=== PATIENT | male | born 1970 | race Caucasian/White ===

== ENCOUNTER 2020-09-22 04:22 | Emergency (ER) | payer OTHER, SELFPAY ==
--- NOTE | ~2020-09-22 | CT_ITS ---
EXAMINATIONS: CT PULMONARY EMBOLISM STUDY AND CT ABDOMEN AND PELVIS WITHOUT CONTRAST CLINICAL INFORMATION: Right-sided pleuritic pain. Right-sided pain. COMPARISON: None. TECHNIQUE: Contiguous helical images of the chest were obtained following the administration of IV contrast. Multiplanar reconstructions were performed. MIPS were obtained and reviewed. Contiguous axial thin section helical images of the abdomen and pelvis were performed without IV contrast. The data set was reformatted in the coronal and sagittal planes and reviewed on an independent workstation. DLP: 08/13/2002 mGy-cm. CONTRAST: 65 mL of Omnipaque 350 were administered without incident. FINDINGS: The heart is of normal size. There is no pericardial effusion. The great vessels are unremarkable. Specifically, there is no pulmonary arterial filling defect. There is no CT evidence for pulmonary embolism. There are no chest wall masses. Review of lung windows demonstrates that there are neither pleural effusions nor pneumothoraces. There are no consolidations. There is mild dependent bibasilar atelectasis. There are no pulmonary parenchymal nodules. The liver is of normal size and attenuation without focal lesions nor intrahepatic biliary ductal dilation. A normal gallbladder is identified. There is no wall thickening or discernible pericholecystic fluid. The spleen, pancreas, adrenal glands are unremarkable. Both kidneys are of normal size and attenuation without hydronephrosis or nephrolithiasis. There is no abdominal free fluid. There is neither mesenteric nor retroperitoneal lymphadenopathy. There is sigmoid diverticulosis without evidence of diverticulitis; otherwise, unremarkable unopacified loops of small and large bowel are identified. A normal appendix is identified. There is no pelvic free fluid. The urinary bladder is unremarkable. There is neither pelvic nor inguinal lymphadenopathy. Bone windows: Neither sclerotic nor lytic bone lesions are identified. CT/CT angio chest PE protocol IMPRESSION: No CT evidence for pulmonary embolism. No acute abdominal or pelvic inflammatory or infectious processes. Neither hydronephrosis nor nephrolithiasis. Sigmoid diverticulosis without evidence of diverticulitis. Automated exposure control (Care Dose) Adjustment of the mA and/or kv according to patient size (this includes techniques or standardized protocols for targeted exams where dose is matched to indication / reason for exam; i.e. extremities or head).
--- NOTE | 2020-09-22 04:27 | ED.CHESTPAIN ---
HPI - Chest Pain General Chief Complaint: Abdominal Pain Stated Complaint: flank pain Time Seen by Provider: 09/22/20 04:23 Source: patient and EMS Mode of arrival: EMS Limitations: no limitations History of Present Illness HPI narrative: R sided chest pain that radiates to back with associated nausea and dyspnea - given zofran by EMS, woke up at 3am with symptoms complaint: chest pain Onset (ago): hour(s) (1.5 hours [employer]) Timing of current episode: constant Prior episodes: No Onset: awoke with symptoms Pain location: right chest Pain radiation: back Severity: similar to previous episodes Quality: sharp Relieving factors: nothing Exacerbating factors: inspiration and movement Associated symptoms: nausea and dyspnea Treatment prior to arrival: other (zofran) Related Data Home Medications Medication Instructions Recorded Confirmed atorvastatin 1 tab PO DAILY 09/22/20 09/22/20 baclofen 1 tab PO BID 09/22/20 09/22/20 divalproex 2 tab PO BEDTIME 09/22/20 09/22/20 divalproex [Depakote ER] 2 tab PO BEDTIME 09/22/20 09/22/20 escitalopram oxalate 1 tab PO DAILY 09/22/20 09/22/20 escitalopram oxalate [Lexapro] 1 tab PO DAILY 09/22/20 09/22/20 omeprazole 1 cap PO DAILY 09/22/20 09/22/20 primidone 50 mg PO QPM 09/22/20 09/22/20 primidone 100 mg PO QAM 09/22/20 09/22/20 propranolol 1 cap PO DAILY 09/22/20 09/22/20 Previous Rx's Medication Instructions Recorded ondansetron 4 mg PO Q8H PRN #20 tab 09/22/20 Allergies Allergy/AdvReac Type Severity Reaction Status Date / Time Penicillins Allergy Unknown u Verified 09/22/20 04:28 Review of Systems Review of Systems: Constitutional : No Weight loss, No Fever, No Chills ENT/Mouth : No sore throat, No Rhinorrhea Eyes: No Eye Pain, No Swelling Cardiovascular : pos Chest Pain, pos SOB, no Dyspnea on Exertion, No Orthopnea, No Edema, No Palpitations Respiratory : No Cough, No Sputum Gastrointestinal : pos Nausea, No Vomiting, No Diarrhea, No abdominal Pain, No Hematochezia, No Melena Genitourinary : No Dysuria, No Urinary Frequency Musculoskeletal : No joint pain, No Myalgias, No Joint Swelling, pos back pain Skin : No Skin Lesions, No rash Neuro : No Weakness, No Numbness, No Dizziness, No Headache Psych : No Anxiety/Panic, No Depression Heme/Lymph: No Bruising, No Lymphadenopathy Endocrine : No Polyuria, No Polydipsia All other systems reviewed and are negative COUNTS INCLUDE 234 BEDS AT THE [facility] Past Medical History Attestation statement: The following information was validated with the patient. Medical History (Updated 09/22/20 @ 06:33 by Jasmin Orr DO) Bipolar 1 disorder Cerebral palsy Chronic GERD COVID-19 Social History Social History (Updated 09/22/20 @ 04:30 by Jasmin Orr DO) Alcohol intake: unknown Smoking Status: Former smoker Use of substances other than those prescribed or required for medical reasons: Unknown Advance Directives: No Physical Exam Vital Signs: Vital Signs: Last Vital Signs Temp 98.3 F 09/22/20 04:30 Pulse 70 09/22/20 05:47 Resp 20 09/22/20 05:47 BP 144/84 H 09/22/20 05:47 Pulse Ox 95 09/22/20 05:47 Body Mass Index 31.0 Appearance: Alert. Oriented X3. No acute distress. Eyes: Pupils equal, round and reactive to light. ENT: Pharynx normal. Neck: Normal inspection. Neck supple. CVS: Normal heart rate and rhythm. Pulses normal. Respiratory: No respiratory distress. Breath sounds normal. Abdomen: Soft and nontender. Skin: Skin warm and dry. Normal skin color. Normal skin turgor. Extremities: No lower extremity edema. No calf ttp Neuro: Oriented X 3. No motor deficit. No sensory deficit. Course Course Course Narrative: states he feels better, CT scan negative, UA negative, will repeat troponin at 730 AM if negative anticipate DC home the patient states he feels much better now, very atypical pain for ACS MDM - Chest Pain MDM Narrative Medical decision making narrative: 50 yo male with CP here with abrupt onset R sided pleuritic chest pain that goes down to flank with associated nausea and dyspnea will need labs, EKG, IV morphine for pain, CT scan for PE and renal colic imaging, dispo per results and findings Lab Data Result diagrams: 09/22/20 04:41 09/22/20 04:42 Labs: Lab Results 09/22/20 09/22/20 09/22/20 Range/Units 04:41 04:41 04:41 WBC 5.0 (4.8-10.8) X10*3/uL RBC 4.39 L (4.60-5.80) X10*6/uL Hgb 12.9 L (14.0-18.0) g/dl Hct 38.8 L (42-52) % MCV 88.4 (80-98) fL MCH 29.4 (27.0-33.0) pg MCHC 33.2 (31.0-36.0) g/dl RDW 13.0 (11.0-16.0) % Plt Count 237 (160-400) X10*3/uL MPV 10.0 (9.4-12.4) fL Immature Gran % (Auto) 1.0 H (0.0-0.4) % Neut % (Auto) 49.7 (45-73) % Lymph % (Auto) 34.7 (20-40) % [place] % (Auto) 12.4 H (2-11) % Eos % (Auto) 1.6 (0-4) % Baso % (Auto) 0.6 (0-2) % Lymph # (Auto) 1.7 (1.2-4.9) X10*3/uL [place] # (Auto) 0.6 (0.1-1.2) X10*3/uL Eos # (Auto) 0.1 (0.0-0.4) X10*3/uL Baso # (Auto) 0.0 (0.0-0.2) X10*3/uL Abs Immat Gran (auto) 0.05 H (0.00-0.03) X10*3/uL Absolute Neuts (auto) 2.5 (2.0-8.3) X10*3/uL Absolute Nucleated RBC 0.000 (0.0-0.012) X10*3/uL Nucleated RBC % (auto) 0.0 (0.0-0.2) /100WBC PT 11.4 (10.8-13.0) SEC INR 1.0 (0.9-1.1) APTT 26.0 (24.1-38.0) SEC Sodium (135-145) mmol/L Potassium (3.3-5.1) mmol/L Chloride (96-108) mmol/L Carbon Dioxide (22-29) mmol/L Anion Gap (12-20) BUN (9-16) mg/dL Creatinine (0.5-1.4) mg/dL Estim Creat Clear Calc Estimated GFR Random Glucose (60-115) mg/dL Calcium (8.4-10.2) mg/dL Magnesium (1.6-2.6) mg/dL Total Bilirubin (0.0-1.0) mg/dL Direct Bilirubin (0.0-0.5) mg/dL AST (5-37) U/L ALT (0-40) U/L Alkaline Phosphatase (39-117) U/L Troponin I High Sens 6.0 (<3.5-35.0) ng/L B-Natriuretic Peptide < 10 (<100) pg/mL Total Protein (6.5-8.0) g/dL Albumin (3.5-5.0) g/dL Lipase (8-78) U/L Urine Color Urine Appearance Urine pH (5.0-8.0) Ur Specific [place] (1.005-1.025) Urine Protein (NEG-TRACE) MG/DL Urine Glucose (UA) (NEG) MG/DL Urine Ketones (NEG) MG/DL Urine Blood (NEG) Urine Nitrite (NEG) Ur Leukocyte Esterase (NEG) COVID-19 (THUY) (Negative) COVID-19 Clin Com 09/22/20 09/22/20 09/22/20 Range/Units 04:42 04:43 04:46 WBC (4.8-10.8) X10*3/uL RBC (4.60-5.80) X10*6/uL Hgb (14.0-18.0) g/dl Hct (42-52) % MCV (80-98) fL MCH (27.0-33.0) pg MCHC (31.0-36.0) g/dl RDW (11.0-16.0) % Plt Count (160-400) X10*3/uL MPV (9.4-12.4) fL Immature Gran % (Auto) (0.0-0.4) % Neut % (Auto) (45-73) % Lymph % (Auto) (20-40) % [place] % (Auto) (2-11) % Eos % (Auto) (0-4) % Baso % (Auto) (0-2) % Lymph # (Auto) (1.2-4.9) X10*3/uL [place] # (Auto) (0.1-1.2) X10*3/uL Eos # (Auto) (0.0-0.4) X10*3/uL Baso # (Auto) (0.0-0.2) X10*3/uL Abs Immat Gran (auto) (0.00-0.03) X10*3/uL Absolute Neuts (auto) (2.0-8.3) X10*3/uL Absolute Nucleated RBC (0.0-0.012) X10*3/uL Nucleated RBC % (auto) (0.0-0.2) /100WBC PT (10.8-13.0) SEC INR (0.9-1.1) APTT (24.1-38.0) SEC Sodium 140 (135-145) mmol/L Potassium 4.0 (3.3-5.1) mmol/L Chloride 104 (96-108) mmol/L Carbon Dioxide 27 (22-29) mmol/L Anion Gap 13 (12-20) BUN 22 H (9-16) mg/dL Creatinine 0.74 (0.5-1.4) mg/dL Estim Creat Clear Calc 134.5 Estimated GFR > 60 Random Glucose 137 H (60-115) mg/dL Calcium 8.9 (8.4-10.2) mg/dL Magnesium 1.9 (1.6-2.6) mg/dL Total Bilirubin 0.4 (0.0-1.0) mg/dL Direct Bilirubin 0.2 (0.0-0.5) mg/dL AST 12 (5-37) U/L ALT 16 (0-40) U/L Alkaline Phosphatase 60 (39-117) U/L Troponin I High Sens (<3.5-35.0) ng/L B-Natriuretic Peptide (<100) pg/mL Total Protein 6.9 (6.5-8.0) g/dL Albumin 4.2 (3.5-5.0) g/dL Lipase 19 (8-78) U/L Urine Color YELLOW Urine Appearance CLEAR Urine pH 6.5 (5.0-8.0) Ur Specific [place] 1.020 (1.005-1.025) Urine Protein NEG (NEG-TRACE) MG/DL Urine Glucose (UA) NEG (NEG) MG/DL Urine Ketones 5 (NEG) MG/DL Urine Blood NEG (NEG) Urine Nitrite NEG (NEG) Ur Leukocyte Esterase NEG (NEG) COVID-19 (THUY) Negative (Negative) COVID-19 Clin Com See Note ECG Data ECG #1: Attestation: I personally reviewed and interpreted this ECG as follows: ECG interpretation date: 09/22/20 ECG interpretation time: 04:48 Interpretation: Rate: 70 Rhythm: NSR [place]: normal Normal P waves. Normal ELAINE. Normal QRS complex. ST T wave : normal, no CHAVA qTC: normal prior studies: no acute ischemia The study has been interpreted contemporaneously by me. . Discharge Plan Discharge Clinical Impression: Nausea Chest pain Qualifiers: Chest pain type: chest pain on breathing Qualified Code(s): R07.1 - Chest pain on breathing Instructions: Chest Pain (ED) Additional Instructions: return to ED for any worsening symptoms or concerns Prescriptions: New ondansetron 4 mg tablet,disintegrating 4 mg PO Q8H PRN (Reason: nausea and vomiting) Qty: 20 RF: 0 No Action primidone 50 mg tablet 100 mg PO QAM RF: 0 primidone 50 mg tablet 50 mg PO QPM RF: 0 atorvastatin 10 mg tablet 1 tab PO DAILY RF: 0 baclofen 10 mg tablet 1 tab PO BID RF: 0 divalproex 500 mg tablet extended release 24 hr 2 tab PO BEDTIME RF: 0 divalproex [Depakote ER] 500 mg tablet extended release 24 hr 2 tab PO BEDTIME RF: 0 omeprazole 20 mg capsule,delayed release(DR/EC) 1 cap PO DAILY RF: 0 propranolol 120 mg capsule,extended release 24 hr 1 cap PO DAILY RF: 0 escitalopram oxalate 20 mg tablet 1 tab PO DAILY RF: 0 escitalopram oxalate [Lexapro] 20 mg tablet 1 tab PO DAILY RF: 0 Referrals: Sanam Rodríguez DO [Primary Care Provider] - 2 days (if not better)
--- NOTE | 2020-09-22 04:28 | ECG_ITS ---
Test Reason : CHEST PAIN Blood Pressure : / mmHG Vent. Rate : 070 BPM Atrial Rate : 070 BPM P-R Int : 138 ms QRS Dur : 090 ms QT Int : 420 ms P-R-T Axes : 060 015 015 degrees QTc Int : 453 ms Normal sinus rhythm Normal ECG No previous ECGs available Referred By: Jasmin Orr Electronically Signed By:KYLEE KONG MD
[2020-09-22 04:30] VITALS: BP 148/84; PULSE 73; RESP 20; TEMP 36.8; O2SAT 95; BMI 31.0
[2020-09-22 04:48] LABS: Basophils Percent Auto 0.6 % (0-2); Eosinophils Absolute Auto 0.1 X10*3/uL (0.0-0.4); Eosinophils Percent Auto 1.6 % (0-4); Hematocrit 38.8 % (42-52); Hemoglobin 12.9 g/dl (14.0-18.0); Imm Gran Abs Auto 0.05 X10*3/uL (0.00-0.03); Lymphocytes Absolute Auto 1.7 X10*3/uL (1.2-4.9); Lymphocytes Percent Auto 34.7 % (20-40); MANUAL DIFF FLAG NO; Mean Corpuscular HGB Conc 33.2 g/dl (31.0-36.0); Mean Corpuscular Hemoglobin 29.4 pg (27.0-33.0); Mean Corpuscular Volume 88.4 fL (80-98); Monocytes Absolute Auto 0.6 X10*3/uL (0.1-1.2); Monocytes Percent Auto 12.4 % (2-11); Neutrophils Absolute Auto 2.5 X10*3/uL (2.0-8.3); Neutrophils Percent Auto 49.7 % (45-73); Platelet Count 237 X10*3/uL (160-400); Red Blood Count 4.39 X10*6/uL (4.60-5.80)
[2020-09-22 04:53] LABS: Prothrombin Time 11.4 SEC (10.8-13.0)
[2020-09-22 05:07] LABS: COVID-19 Test Negative (Negative)
[2020-09-22 05:09] VITALS: RESP 20
[2020-09-22] MEDS: Morphine Sulfate 4 MG/ML CARTRIDGE IVPUSH (05:09)
[2020-09-22] MEDS: ondansetron HCL 4 MG/2 ML VIAL IVPUSH (05:10)
[2020-09-22 05:14] LABS: B Type Natriuretic Peptide < 10 pg/mL (<100)
[2020-09-22 05:18] LABS: Alanine Aminotransferase 16 U/L (0-40); Albumin Level 4.2 g/dL (3.5-5.0); Alkaline Phosphatase 60 U/L (39-117); Anion Gap 13 (12-20); Aspartate Amino Transferase 12 U/L (5-37); Bilirubin Direct 0.2 mg/dL (0.0-0.5); Bilirubin Total 0.4 mg/dL (0.0-1.0); Blood Urea Nitrogen 22 mg/dL (9-16); Calcium 8.9 mg/dL (8.4-10.2); Carbon Dioxide 27 mmol/L (22-29); Chloride 104 mmol/L (96-108); Creatinine Clr Calc Pharmacy 134.5; Estimated Glomerular Filt Rate > 60; Glucose Random 137 mg/dL (60-115); Lipase 19 U/L (8-78); Magnesium 1.9 mg/dL (1.6-2.6); Sodium 140 mmol/L (135-145); Total Protein 6.9 g/dL (6.5-8.0)
[2020-09-22 05:47] VITALS: BP 144/84; PULSE 70; RESP 20; O2SAT 95
[2020-09-22] MEDS: iohexoL 350 MG/ML 100 ML INFUS..BTL 65 ML IV (06:02)
[2020-09-22 06:28] LABS: Glucose Urine UA NEG (NEG); Leukocyte Esterase Urine NEG (NEG); Nitrite Urine NEG (NEG); PH 6.5 (5.0-8.0); Urine Blood NEG (NEG); Urine Ketones 5 MG/DL (NEG); Urine Protein NEG (NEG-TRACE)
[2020-09-22 06:29] LABS: Appearance Urine CLEAR; Color Urine YELLOW
[2020-09-22 07:34] VITALS: BP 138/84; PULSE 70; RESP 16; TEMP 36.8; O2SAT 97
[2020-09-22 08:00] VITALS: BP 138/84; PULSE 70; RESP 16; TEMP 36.8; O2SAT 97
[2020-09-22 08:53] LABS: Troponin-I High Sensitivity 5.1 ng/L (<3.5-35.0)
== END 2020-09-22 09:50 | disposition home or self-care (01) ==
PROVIDERS: Emergency Provider Emergency Medicine; PCP Internal Medicine
DX: R07.1 Chest pain on breathing (principal); R10.9 Unspecified abdominal pain; Z79.899 Other long term (current) drug therapy; R11.0 Nausea; Z20.822 Contact with and (suspected) exposure to COVID-19; Z87.891 Personal history of nicotine dependence
CPT/HCPCS: 36415; 71275; 74176; 80048; 80076; 81003; 83690; 83735; 83880; 84484; 85025; 85610; 85730; 87635; 93005; 96374; 96375; 99285; J2270; J2405; Q9967

== ENCOUNTER 2021-04-09 18:35 | Emergency (ER) | payer OTHER, SELFPAY ==
--- NOTE | 2021-04-09 | ECG_ITS ---
Test Reason : CHEST PAIN Blood Pressure : / mmHG Vent. Rate : 059 BPM Atrial Rate : 059 BPM P-R Int : 148 ms QRS Dur : 088 ms QT Int : 392 ms P-R-T Axes : 061 023 017 degrees QTc Int : 388 ms Sinus bradycardia Otherwise normal ECG When compared with ECG of 22-SEP-2020 04:44, QT has shortened Heart rate has decreased Referred By: Generic ED Physician Electronically Signed By:BRAVO COLLINS
[2021-04-09 18:45] VITALS: BP 154/83; PULSE 61; RESP 18; TEMP 36.8; O2SAT 96; BMI 33.4
--- NOTE | 2021-04-09 20:16 | ED_ITS ---
HPI - General Adult General Chief complaint: General Medical Stated complaint: Chest pain Time Seen by Provider: 04/09/21 20:16 Source: patient Mode of arrival: ambulatory Limitations: no limitations History of Present Illness HPI narrative: Patient with no known coronary artery disease disabled patient was in [facility] talking,and all of a sudden noticed pain in the right side of the chest similar to that when he was here in September 2020 feels like pain is tight in nature coming and going no diaphoresis no shortness of breath no cough at this time there is no chest pain Related Data Home Medications Medication Instructions Recorded Confirmed aspirin 81 mg tablet,delayed 1 tab PO DAILY 09/22/20 09/22/20 release atorvastatin 10 mg tablet 1 tab PO DAILY 09/22/20 09/22/20 baclofen 10 mg tablet 1 tab PO BID 09/22/20 09/22/20 divalproex 500 mg tablet,extended 2 tab PO BEDTIME 09/22/20 09/22/20 release 24 hr (Depakote ER) escitalopram oxalate 20 mg tablet 1 tab PO DAILY 09/22/20 09/22/20 (Lexapro) escitalopram oxalate 5 mg tablet 1 tab PO DAILY 09/22/20 09/22/20 omeprazole 20 mg capsule,delayed 1 cap PO DAILY 09/22/20 09/22/20 release primidone 50 mg tablet 50 mg PO QPM 09/22/20 09/22/20 primidone 50 mg tablet 100 mg PO QAM 09/22/20 09/22/20 propranolol 120 mg capsule,24 1 cap PO DAILY 09/22/20 09/22/20 hr,extended release Previous Rx's Medication Instructions Recorded ondansetron 4 mg disintegrating 4 mg PO Q8H PRN #20 tab 09/22/20 tablet atorvastatin 10 mg tablet 10 mg PO DAILY #30 tab 04/09/21 Allergies Allergy/AdvReac Type Severity Reaction Status Date / Time Penicillins Allergy Unknown u Verified 04/09/21 18:37 Review of Systems Review of Systems: Yes all other systems are reviewed and are negative PMF Past Medical History Medical History Bipolar 1 disorder Cerebral palsy Chronic GERD COVID-19 High cholesterol Social History Social History Alcohol intake: unknown Advance Directives: No Advance Directives Information Provided: No Physical Exam Vital Signs: Vital Signs: Last Vital Signs Temp 98.2 F 04/09/21 18:45 Pulse 60 04/09/21 21:33 Resp 20 04/09/21 21:33 BP 125/71 04/09/21 21:33 Pulse Ox 96 04/09/21 20:33 Body Mass Index 33.4 Appearance: Alert. Oriented X3. No acute distress. Eyes: PERRLA, No Nystagmus ENT: Pharynx normal. Oral Mucosa moist Neck: Normal inspection. Neck supple. CVS: Normal heart rate and rhythm. Pulses normal. No murmur or gallop Respiratory: No respiratory distress. Equal air entry bilateral, no wheezing/rales/rhonchi Abdomen: Soft and nontender. Bowel sounds are present, no mass palpable, no CVA tenderness Skin: Skin warm and dry. Normal skin color. Normal skin turgor. Extremities: No lower extremity edema. No calf tenderness Neuro: Oriented X 3. 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 Result diagrams: 04/09/21 20:38 04/09/21 20:38 Labs: Lab Results 04/09/21 04/09/21 04/09/21 Range/Units 20:38 20:38 20:38 WBC 7.2 (4.8-10.8) X10*3/uL RBC 4.62 (4.60-5.80) X10*6/uL Hgb 13.5 L (14.0-18.0) g/dl Hct 39.9 L (42-52) % MCV 86.4 (80-98) fL MCH 29.2 (27.0-33.0) pg MCHC 33.8 (31.0-36.0) g/dl RDW 13.4 (11.0-16.0) % Plt Count 277 (160-400) X10*3/uL MPV 9.9 (9.4-12.4) fL Immature Gran % (Auto) 0.6 H (0.0-0.4) % Neut % (Auto) 55.6 (45-73) % Lymph % (Auto) 34.0 (20-40) % [place] % (Auto) 8.0 (2-11) % Eos % (Auto) 1.4 (0-4) % Baso % (Auto) 0.4 (0-2) % Lymph # (Auto) 2.5 (1.2-4.9) X10*3/uL [place] # (Auto) 0.6 (0.1-1.2) X10*3/uL Eos # (Auto) 0.1 (0.0-0.4) X10*3/uL Baso # (Auto) 0.0 (0.0-0.2) X10*3/uL Abs Immat Gran (auto) 0.04 H (0.00-0.03) X10*3/uL Absolute Neuts (auto) 4.0 (2.0-8.3) X10*3/uL Absolute Nucleated RBC 0.000 (0.0-0.012) X10*3/uL Nucleated RBC % (auto) 0.0 (0.0-0.2) /100WBC Sodium 141 (135-145) mmol/L Potassium 4.1 (3.3-5.1) mmol/L Chloride 109 H (96-108) mmol/L Carbon Dioxide 23 (22-29) mmol/L Anion Gap 13 (12-20) BUN 16 (9-16) mg/dL Creatinine 0.69 (0.5-1.4) mg/dL Estim Creat Clear Calc 143.4 Estimated GFR > 60 Random Glucose 93 (60-115) mg/dL Calcium 9.0 (8.4-10.2) mg/dL Troponin I High Sens < 3.5 (<3.5-35.0) ng/L ECG Data Attestation: I personally reviewed and interpreted this ECG as follows: Interpretation: Normal sinus rhythm heart rate 59 sinus bradycardia normal intervals normal axis no acute ST T wave changes Scores Heart Score History: -0- slightly suspicious ECG: -0- normal Age: -1- >45 - <65 Risk factory: -0- no risk factors known Troponin: -0- < or = normal limit Score: 1 Risk: 1.7% Discharge Plan Discharge Clinical Impression: Chest pain Patient Disposition: Home, Self-Care Instructions: Chest Pain (ED) Additional Instructions: Follow-up with your PCP for further evaluation if chest pain is likely not from the heart Prescriptions: New atorvastatin 10 mg tablet 10 mg PO DAILY Qty: 30 RF: 0 No Action primidone 50 mg tablet 100 mg PO QAM RF: 0 primidone 50 mg tablet 50 mg PO QPM RF: 0 atorvastatin 10 mg tablet 1 tab PO DAILY RF: 0 baclofen 10 mg tablet 1 tab PO BID RF: 0 divalproex [Depakote ER] 500 mg tablet extended release 24 hr 2 tab PO BEDTIME RF: 0 omeprazole 20 mg capsule,delayed release(DR/EC) 1 cap PO DAILY RF: 0 propranolol 120 mg capsule,extended release 24 hr 1 cap PO DAILY RF: 0 escitalopram oxalate [Lexapro] 20 mg tablet 1 tab PO DAILY RF: 0 ondansetron 4 mg tablet,disintegrating 4 mg PO Q8H PRN (Reason: nausea and vomiting) Qty: 20 RF: 0 escitalopram oxalate 5 mg tablet 1 tab PO DAILY RF: 0 aspirin 81 mg tablet,delayed release (DR/EC) 1 tab PO DAILY RF: 0 Interventions: ED Discharge Assessment Last Done: 04/09/21 21:38 Discharge Date/Time: 04/09/21 21:38
[2021-04-09 20:33] VITALS: BP 127/80; PULSE 52; RESP 21; O2SAT 96
[2021-04-09 20:44] LABS: MANUAL DIFF FLAG NO
[2021-04-09 20:45] LABS: Basophils Percent Auto 0.4 % (0-2); Eosinophils Absolute Auto 0.1 X10*3/uL (0.0-0.4); Eosinophils Percent Auto 1.4 % (0-4); Hematocrit 39.9 % (42-52); Hemoglobin 13.5 g/dl (14.0-18.0); Imm Gran Abs Auto 0.04 X10*3/uL (0.00-0.03); Imm Gran Pct Auto 0.6 % (0.0-0.4); Lymphocytes Absolute Auto 2.5 X10*3/uL (1.2-4.9); Mean Corpuscular HGB Conc 33.8 g/dl (31.0-36.0); Mean Corpuscular Hemoglobin 29.2 pg (27.0-33.0); Mean Corpuscular Volume 86.4 fL (80-98); Mean Platelet Volume 9.9 fL (9.4-12.4); Monocytes Absolute Auto 0.6 X10*3/uL (0.1-1.2); Neutrophils Percent Auto 55.6 % (45-73); Platelet Count 277 X10*3/uL (160-400); Red Blood Count 4.62 X10*6/uL (4.60-5.80); Red Cell Distribution Width 13.4 % (11.0-16.0); White Blood Count 7.2 X10*3/uL (4.8-10.8)
[2021-04-09 21:04] LABS: Anion Gap 13 (12-20); Blood Urea Nitrogen 16 mg/dL (9-16); Carbon Dioxide 23 mmol/L (22-29); Chloride 109 mmol/L (96-108); Creatinine Clr Calc Pharmacy 143.4; Estimated Glomerular Filt Rate > 60; Glucose Random 93 mg/dL (60-115); Potassium 4.1 mmol/L (3.3-5.1); Sodium 141 mmol/L (135-145)
[2021-04-09 21:10] LABS: Troponin-I High Sensitivity < 3.5 ng/L (<3.5-35.0)
[2021-04-09 21:33] VITALS: BP 125/71; PULSE 60; RESP 20
== END 2021-04-09 21:38 | disposition home or self-care (01) ==
PROVIDERS: Emergency Provider Internal Medicine
DX: R07.9 Chest pain, unspecified (principal); Z79.899 Other long term (current) drug therapy; Z79.82 Long term (current) use of aspirin; Z20.822 Contact with and (suspected) exposure to COVID-19; Z86.16 Personal history of COVID-19
CPT/HCPCS: 36415; 80048; 84484; 85025; 93005; 99284

== ENCOUNTER 2021-04-25 18:11 | Inpatient (IN) | payer OTHER, SELFPAY ==
--- NOTE | ~2021-04-25 | MR_ITS ---
EXAMINATION: MR ABDOMEN WITHOUT CONTRAST CLINICAL INFORMATION: Gallstones. Evaluate for common bile duct stone. COMPARISON: Previous CT of the abdomen and pelvis most recent from yesterday and abdominal ultrasound from yesterday. TECHNIQUE: MR abdomen is performed without gadolinium contrast. FINDINGS: LUNG BASES: The visualized lung bases are unremarkable. LIVER, GALLBLADDER, AND BILIARY TREE: The liver is low in attenuation suggestive of fatty infiltration. The liver is normal in size and contour. No focal liver lesion is seen. The gallbladder is contracted. There are gallstones in the gallbladder. The gallbladder wall may be thickened, measuring up to 8 mm. There is no pericholecystic fluid. There is no intrahepatic or extrahepatic biliary duct dilatation. The common bile duct measures 0.6 cm. No common bile duct stone is seen. PANCREAS: Unremarkable. SPLEEN: Unremarkable. ADRENAL GLANDS: Unremarkable. KIDNEYS AND URETERS: The kidneys are normal in size and shape. No hydronephrosis. No perinephric stranding. GASTROINTESTINAL TRACT: There is diverticulosis of the colon. No bowel obstruction. No ascites or fluid collection. ABDOMINAL WALL: No significant hernia is appreciated. LYMPH NODES: No lymphadenopathy. VASCULAR: Unremarkable. OSSEOUS STRUCTURES: Marrow signal normal. MR/MR MRCP IMPRESSION: Contracted gallbladder and gallstones. The gallbladder wall may be slightly thickened. Normal caliber intrahepatic and extrahepatic bile ducts. No common bile duct stone seen. Fatty liver. Diverticulosis of the colon.
--- NOTE | ~2021-04-25 | US_ITS ---
EXAMINATION: US ABDOMEN LIMITED CLINICAL INFORMATION: Right upper quadrant pain, evaluate for obstructive process. COMPARISON: None TECHNIQUE: Real-time imaging of the right upper quadrant abdominal viscera. FINDINGS: PANCREAS: The visualized proximal portion of the pancreas is unremarkable. The distal portion is obscured secondary to overlying bowel gas. LIVER: The liver is normal in size. The liver contour is normal. There is increased liver parenchymal echogenicity, consistent with hepatic steatosis, with some sparing near the gallbladder. No focal hepatic lesion. There is no intrahepatic biliary duct dilatation seen. GALLBLADDER: Gallbladder is contracted. Gallstones are identified. There is mild wall thickening to 0.4 cm. COMMON BILE DUCT: Dilated, measuring 0.9 cm in diameter. RIGHT KIDNEY: No hydronephrosis. No renal calculi or focal parenchymal lesions. The kidney measures 12.1 cm in maximum dimension. FREE FLUID: None. US/US abdomen limited IMPRESSION: Cholelithiasis. Contracted gallbladder demonstrates mild wall thickening, which could reflect changes of cholecystitis. In addition, the common bile duct is dilated raising the possibility of choledocholithiasis, which could be further assessed with MRCP or ERCP.
--- NOTE | ~2021-04-25 | XR_ITS ---
EXAMINATION: XR CHEST CLINICAL INFORMATION: Dyspnea COMPARISON: None TECHNIQUE: Frontal view of the chest was obtained. FINDINGS: The cardiac silhouette is normal. There is mild diffuse bronchial wall thickening. Hazy bilateral opacities in the left lower lobe. There are no pleural effusions or pneumothoraces. The bones and soft tissues are unremarkable for the patient's age. XR/XR chest 1V IMPRESSION: Bronchial wall thickening and hazy opacities in the left lower lobe may be infectious and/or inflammatory in etiology.
--- NOTE | ~2021-04-25 | CT_ITS ---
EXAMINATION: CONTRAST-ENHANCED CT OF THE CHEST; CONTRAST-ENHANCED CT OF THE ABDOMEN AND PELVIS INDICATION: Dyspnea, right upper quadrant pain COMPARISON: 09/22/2020 TECHNIQUE: 85 mL Omnipaque 350 IV contrast was utilized. Multidetector helical imaging was performed through the chest, abdomen, and pelvis. Coronal and sagittal reformatted images were created at the technologist workstation. DLP: 1385 mGy-cm DOSE LOWERING TECHNIQUES: This CT examination was performed using dose optimization techniques as appropriate, variously including the following: - Automated exposure control - Adjustment of mA and/or kV according to patient size (this includes techniques or standardized protocols for targeted exams were dose is matched to indication/reason for exam; i.e. extremities or head) - Use of iterative reconstruction technique FINDINGS: Chest: Minimal subsegmental atelectasis is noted at the left base. No regions of consolidation bilaterally. A few small juxtapleural nodules bilaterally favor lymph nodes. No pneumothorax or pleural effusion. The visualized thyroid gland is unremarkable. There are subcentimeter mediastinal lymph nodes within the range of normal variation. Cardiac size is within normal limits; no pericardial effusion. The aorta is unremarkable. No axillary lymphadenopathy is present. Abdomen/Pelvis: The liver is homogeneous in attenuation without intrahepatic biliary ductal dilatation. The gallbladder appears partially contracted, with mural prominence and surrounding stranding. The spleen, pancreas, and adrenal glands are within normal limits. Bilateral nephrograms are symmetric. No hydronephrosis. No obstructing renal or ureteral calculi are present. The urinary bladder is unremarkable. The prostate and seminal vesicles are unremarkable. Colonic diverticulosis is noted. The small and large bowel are otherwise unremarkable without evidence of obstruction or pericolonic inflammatory change. The appendix is unremarkable. No free fluid or free air is identified. There are mild scattered atherosclerotic calcifications. No retroperitoneal or pelvic lymphadenopathy is seen. There is facet arthropathy of the lower lumbar spine. CT/CT abdomen pelvis w con IMPRESSION: 1. Gallbladder appears partially contracted, with mural prominence and surrounding stranding raising concern for cholecystitis in the setting of right upper quadrant pain. Correlation with ultrasound is recommended. 2. No acute intrathoracic findings. 3. Colonic diverticulosis.
[2021-04-25 18:50] VITALS: BP 138/68; PULSE 68; RESP 18; TEMP 36.6; O2SAT 95; BMI 33.4
--- NOTE | 2021-04-25 20:11 | ECG_ITS ---
Test Reason : DYSPNEA Blood Pressure : / mmHG Vent. Rate : 062 BPM Atrial Rate : 062 BPM P-R Int : 156 ms QRS Dur : 088 ms QT Int : 408 ms P-R-T Axes : 057 012 021 degrees QTc Int : 414 ms Normal sinus rhythm Normal ECG When compared with ECG of 09-APR-2021 18:40, No significant change was found Referred By: Sandrine More Electronically Signed By:BRAVO COLLINS
[2021-04-25 20:31] VITALS: PULSE 63; RESP 16; TEMP 36.8; O2SAT 96
--- NOTE | 2021-04-25 20:45 | ED.SOB ---
HPI - SOB/Dyspnea General Chief Complaint: Dyspnea <NEELIMA Fang Last Filed: 04/26/21 01:40> Stated Complaint: Trouble breathing, chest pain <NEELIMA Fang Last Filed: 04/26/21 01:40> Time Seen by Provider: 04/25/21 19:59 <NEELIMA Fang Last Filed: 04/26/21 01:40> Source: patient <NEELIMA Fang Last Filed: 04/26/21 01:40> Mode of arrival: ambulatory <NEELIMA Fang Last Filed: 04/26/21 01:40> History of Present Illness HPI Narrative: 51-year-old male with past medical history of bipolar, GERD, hyperlipidemia, cerebral palsy, presenting to the ED complaining of chest discomfort when taking deep breath x1 week. Denies these symptoms at present, reports symptomatic improvement now. Reports mild dry cough. Denies fever, chills, chest pain, SOB now, abdominal pain, LE edema, recent travel, COVID-19 exposure, history of blood clots. Takes baby ASA, no other anticoagulation Was vaccinated with Moderna <NEELIMA Fang Last Filed: 04/26/21 01:40> MD elicited complaint: shortness of breath, pain with inspiration and chest pain <NEELIMA Fang Last Filed: 04/26/21 01:40> Related Data Home Medications: Home Medications Medication Instructions Recorded Confirmed aspirin 81 mg tablet,delayed 1 tab PO DAILY 09/22/20 04/26/21 release atorvastatin 10 mg tablet 1 tab PO DAILY 09/22/20 04/26/21 baclofen 10 mg tablet 1 tab PO BID 09/22/20 04/26/21 divalproex 500 mg tablet,extended 2 tab PO BEDTIME 09/22/20 04/26/21 release 24 hr (Depakote ER) escitalopram oxalate 20 mg tablet 1 tab PO DAILY 09/22/20 04/26/21 (Lexapro) escitalopram oxalate 5 mg tablet 1 tab PO DAILY 09/22/20 04/26/21 omeprazole 20 mg capsule,delayed 1 cap PO DAILY 09/22/20 04/26/21 release primidone 50 mg tablet 50 mg PO QPM 09/22/20 04/26/21 primidone 50 mg tablet 100 mg PO QAM 09/22/20 04/26/21 propranolol 120 mg capsule,24 1 cap PO DAILY 09/22/20 04/26/21 hr,extended release <NEELIMA Fang Last Filed: 04/26/21 01:40> Allergies/Adverse Reactions: Allergies Allergy/AdvReac Type Severity Reaction Status Date / Time Penicillins Allergy Unknown u Verified 04/09/21 18:37 <NEELIMA Fang Last Filed: 04/26/21 01:40> Review of Systems Review of Systems: Constitutional: No Fever, No Chills, No Fatigue, No Malaise ENT/Mouth: No Ear Pain, No Nasal Congestion, No sore throat, No Rhinorrhea, No Swallowing Difficulty Eyes: No Eye Pain, No Swelling, No Redness Cardiovascular: + Chest Pain (resolved), + SOB(resolved), No Dyspnea on Exertion, No Orthopnea, No Edema, No Palpitations Respiratory: + Cough, No Sputum, No Wheezing, No Dyspnea Gastrointestinal: No Nausea, No Vomiting, No Diarrhea, No Constipation, No Abdominal pain Genitourinary: No irregular bleeding, No Dysuria, No Urinary Frequency, No Hematuria,No Flank Pain Musculoskeletal: No joint pain, No Myalgias, No Joint Swelling Skin: No Skin Lesions, No rash Neuro: No Weakness, No Numbness, No Dizziness, No Headache <NEELIMA Fang Last Filed: 04/26/21 01:40> Yes all other systems are reviewed and are negative <NEELIMA Fang Last Filed: 04/26/21 01:40> PMFSH Past Medical History Attestation statement: The following information was validated with the patient. <NEELIMA Fang Last Filed: 04/26/21 01:40> Medical History: Medical History Bipolar 1 disorder Cerebral palsy Chronic GERD COVID-19 High cholesterol <NEELIMA Fang Last Filed: 04/26/21 01:40> Social History Social History: Social History Alcohol intake: unknown Advance Directives: No Advance Directives Information Provided: Yes <NEELIMA Fang Last Filed: 04/26/21 01:40> Physical Exam Vital Signs: Vital Signs: Last Vital Signs Temp 98.2 F 04/26/21 01:58 Pulse 64 04/26/21 01:58 Resp 16 04/26/21 01:58 BP 144/85 H 04/26/21 01:58 Pulse Ox 96 04/26/21 01:58 Body Mass Index 33.4 <Sandrine More PA - Last Filed: 04/26/21 01:40> Vital Signs: Last Vital Signs Temp 98.2 F 04/26/21 01:58 Pulse 64 04/26/21 01:58 Resp 16 04/26/21 01:58 BP 144/85 H 04/26/21 01:58 Pulse Ox 96 04/26/21 01:58 Body Mass Index 33.4 <Yuliet Jensne MD - Last Filed: 04/26/21 06:29> Const: General: cooperative and healthy appearing <NEELIMA Fang - Last Filed: 04/26/21 01:40> Orientation/consciousness: patient oriented x3 <Sandrine More PA - Last Filed: 04/26/21 01:40> Limitations: no limitations <Sandrine More PA - Last Filed: 04/26/21 01:40> HENMT: Head: Yes normal to inspection <Sandrine More PA - Last Filed: 04/26/21 01:40> Ears: hearing grossly normal bilaterally <Sandrine More PA - Last Filed: 04/26/21 01:40> General nose exam: Normal external nose present <NEELIMA Fang - Last Filed: 04/26/21 01:40> Face and sinus: Yes normal facial exam <Sandrine More PA - Last Filed: 04/26/21 01:40> Eyes: General: appearance normal, both eyes and all related structures <NEELIMA Fang - Last Filed: 04/26/21 01:40> EOM: EOMs intact bilaterally <Sandrine More PA - Last Filed: 04/26/21 01:40> Neck: Neck: Yes normal visual inspection <NEELIMA Fang - Last Filed: 04/26/21 01:40> Resp: Effort & Inspection: normal respiratory effort <Sandrine More PA - Last Filed: 04/26/21 01:40> Auscultation: crackles bilateral at the base <Sandrine Changcarloz [facility] Last Filed: 04/26/21 01:40> Cardio: Rate: regular rate <Sandrine Changcarloz [facility] Last Filed: 04/26/21 01:40> Heart sounds: S1 normal heart sound present and S2 normal heart sound present <Sandrine Argenis [facility] Last Filed: 04/26/21 01:40> GI: Inspection: Yes normal to inspection <Sandrine Changcarloz [facility] Last Filed: 04/26/21 01:40> Palpation (GI): Soft to palpation, nontender, no guarding and not rigid <Sandrine Argenis [facility] Last Filed: 04/26/21 01:40> Skin: Rashes: no rashes <Sandrine Argenis [facility] Last Filed: 04/26/21 01:40> Wounds: no wounds <Sandrine Argenis [facility] Last Filed: 04/26/21 01:40> Neuro: General: patient oriented x3 <Sandrine Argenis [facility] Last Filed: 04/26/21 01:40> Gait exam (Neuro): Normal gait present <Sandrine Argenis [facility] Last Filed: 04/26/21 01:40> Extrem: General: Yes normal to inspection, Yes no pedal edema and Yes no calf tenderness <Sandrine Argenis [facility] Last Filed: 04/26/21 01:40> Course Course Course Narrative: XR chest 1V IMPRESSION: Bronchial wall thickening and hazy opacities in the left lower lobe may be infectious and/or inflammatory in etiology. > labs, lactic, blood cultures, and empiric IV Ceftriaxone ordered. Low concern for severe sepsis at this time -COVID-19/influenza/RSV negative. -2200-- no leukocytosis. H&H stable. Bilirubins/AST/ALT & Alk Phos very elevated >> obtain CT abdomen/pelvis and CT chest for further evaluation -troponin negative -0119--CT abdomen pelvis w con IMPRESSION: 1.? Gallbladder appears partially contracted, with mural prominence and surrounding stranding raising concern for cholecystitis in the setting of right upper quadrant pain. Correlation with ultrasound is recommended. 2.? No acute intrathoracic findings. 3.? Colonic diverticulosis. >> Flagyl added. Surgery consulted. Plan is for admission -138--spoke to surgery, Dr. Patton recommended ultrasound prior to admission -0200--ED care transferred to Dr. Jensen pending abdomen ultrasound and anticipated admission <NEELIMA Fang - Last Filed: 04/26/21 01:40> Reevaluation(s) Reevaluation #1: I discussed this case with Dr. Patton who does not feel that this is a surgical case at this time and recommends further evaluation for alternative etiologies of patient's presentation. <Yuliet Jensen MD - Last Filed: 04/26/21 06:29> Reevaluation #2: I discussed this case with Dr. Nixon who recommends admission and MRCP as well as toxicology workup. I then discussed with the inpatient hospitalist who accepts admission. <Yuliet Jensen MD - Last Filed: 04/26/21 06:29> Time: 06:20 <Yuliet Jensen MD - Last Filed: 04/26/21 06:29> MDM - SOB/Dyspnea MDM Narrative Medical decision making narrative: 51-year-old male with past medical history of bipolar, GERD, hyperlipidemia, cerebral palsy, presenting to the ED complaining of chest discomfort when taking deep breath x1 week. On exam VSS, NAD, bibasilar crackles, no wheezing, no pedal edema/calf tenderness. Concern for viral syndrome/COVID-19 vs pneumonia. Lower concern for PE/CHF as symptoms are intermittent/resolved at present. Plan: EKG, labs, CXR, COVID-19 testing, reassess <NEELIMA Fang - Last Filed: 04/26/21 01:40> Medical Records Attestation: I reviewed the patient's medical records. <NEELIMA Fang - Last Filed: 04/26/21 01:40> Lab Data Attestation: I reviewed the patient's lab results. <NEELIMA Fang - Last Filed: 04/26/21 01:40> Result diagrams: : 04/25/21 20:51 04/25/21 20:51 <NEELIMA Fang - Last Filed: 04/26/21 01:40> Labs: Lab Results 04/25/21 04/25/21 04/25/21 Range/Units 20:51 20:51 20:51 WBC 8.6 (4.8-10.8) X10*3/uL RBC 4.87 (4.60-5.80) X10*6/uL Hgb 14.4 (14.0-18.0) g/dl Hct 42.9 (42-52) % MCV 88.1 (80-98) fL MCH 29.6 (27.0-33.0) pg MCHC 33.6 (31.0-36.0) g/dl RDW 14.3 (11.0-16.0) % Plt Count 273 (160-400) X10*3/uL MPV 10.1 (9.4-12.4) fL Immature Gran % (Auto) 0.6 H (0.0-0.4) % Neut % (Auto) 79.1 H (45-73) % Lymph % (Auto) 14.0 L (20-40) % Henderson % (Auto) 5.4 (2-11) % Eos % (Auto) 0.5 (0-4) % Baso % (Auto) 0.4 (0-2) % Lymph # (Auto) 1.2 (1.2-4.9) X10*3/uL Henderson # (Auto) 0.5 (0.1-1.2) X10*3/uL Eos # (Auto) 0.0 (0.0-0.4) X10*3/uL Baso # (Auto) 0.0 (0.0-0.2) X10*3/uL Abs Immat Gran (auto) 0.05 H (0.00-0.03) X10*3/uL Absolute Neuts (auto) 6.8 (2.0-8.3) X10*3/uL Absolute Nucleated RBC 0.000 (0.0-0.012) X10*3/uL Nucleated RBC % (auto) 0.0 (0.0-0.2) /100WBC PT (9.9-13.0) SEC INR (0.9-1.1) APTT (24.1-38.0) SEC Sodium 141 (135-145) mmol/L Potassium 4.9 (3.3-5.1) mmol/L Chloride 104 (96-108) mmol/L Carbon Dioxide 25 (22-29) mmol/L Anion Gap 17 (12-20) BUN 11 (9-16) mg/dL Creatinine 0.71 (0.5-1.4) mg/dL Estim Creat Clear Calc 139.3 Estimated GFR > 60 Random Glucose 137 H D (60-115) mg/dL Lactic Acid (0.5-2.0) mmol/L Calcium 9.9 D (8.4-10.2) mg/dL Ferritin 1449 H (20-250) ng/mL Total Bilirubin 4.5 H (0.0-1.0) mg/dL Direct Bilirubin 2.9 H (0.0-0.5) mg/dL AST 497 H (5-37) U/L ALT 1004 H (0-40) U/L Alkaline Phosphatase 405 H D (39-117) U/L Lactate Dehydrogenase 748 H (118-273) U/L Troponin I High Sens (<3.5-35.0) ng/L C-Reactive Protein 0.48 (< or = 0.50) mg/dL B-Natriuretic Peptide (<100) pg/mL Total Protein 7.5 (6.5-8.0) g/dL Albumin 4.5 (3.5-5.0) g/dL Lipase 15 (8-78) U/L Procalcitonin ng/mL Specimen Comment Coronavirus (PCR) NEGATIVE (Negative) Influenza Type A (PCR) NEGATIVE (Negative) Influenza Type B (PCR) NEGATIVE (Negative) RSV RNA Qual (PCR) NEGATIVE (Negative) 04/25/21 04/25/21 04/25/21 Range/Units 20:51 20:51 20:51 WBC (4.8-10.8) X10*3/uL RBC (4.60-5.80) X10*6/uL Hgb (14.0-18.0) g/dl Hct (42-52) % MCV (80-98) fL MCH (27.0-33.0) pg MCHC (31.0-36.0) g/dl RDW (11.0-16.0) % Plt Count (160-400) X10*3/uL MPV (9.4-12.4) fL Immature Gran % (Auto) (0.0-0.4) % Neut % (Auto) (45-73) % Lymph % (Auto) (20-40) % Henderson % (Auto) (2-11) % Eos % (Auto) (0-4) % Baso % (Auto) (0-2) % Lymph # (Auto) (1.2-4.9) X10*3/uL Henderson # (Auto) (0.1-1.2) X10*3/uL Eos # (Auto) (0.0-0.4) X10*3/uL Baso # (Auto) (0.0-0.2) X10*3/uL Abs Immat Gran (auto) (0.00-0.03) X10*3/uL Absolute Neuts (auto) (2.0-8.3) X10*3/uL Absolute Nucleated RBC (0.0-0.012) X10*3/uL Nucleated RBC % (auto) (0.0-0.2) /100WBC PT (9.9-13.0) SEC INR (0.9-1.1) APTT (24.1-38.0) SEC Sodium (135-145) mmol/L Potassium (3.3-5.1) mmol/L Chloride (96-108) mmol/L Carbon Dioxide (22-29) mmol/L Anion Gap (12-20) BUN (9-16) mg/dL Creatinine (0.5-1.4) mg/dL Estim Creat Clear Calc Estimated GFR Random Glucose (60-115) mg/dL Lactic Acid 1.5 (0.5-2.0) mmol/L Calcium (8.4-10.2) mg/dL Ferritin (20-250) ng/mL Total Bilirubin (0.0-1.0) mg/dL Direct Bilirubin (0.0-0.5) mg/dL AST (5-37) U/L ALT (0-40) U/L Alkaline Phosphatase (39-117) U/L Lactate Dehydrogenase (118-273) U/L Troponin I High Sens < 3.5 (<3.5-35.0) ng/L C-Reactive Protein (< or = 0.50) mg/dL B-Natriuretic Peptide < 10 (<100) pg/mL Total Protein (6.5-8.0) g/dL Albumin (3.5-5.0) g/dL Lipase (8-78) U/L Procalcitonin 0.17 ng/mL Specimen Comment Coronavirus (PCR) (Negative) Influenza Type A (PCR) (Negative) Influenza Type B (PCR) (Negative) RSV RNA Qual (PCR) (Negative) 04/25/21 04/26/21 Range/Units 23:05 05:33 WBC (4.8-10.8) X10*3/uL RBC (4.60-5.80) X10*6/uL Hgb (14.0-18.0) g/dl Hct (42-52) % MCV (80-98) fL MCH (27.0-33.0) pg MCHC (31.0-36.0) g/dl RDW (11.0-16.0) % Plt Count (160-400) X10*3/uL MPV (9.4-12.4) fL Immature Gran % (Auto) (0.0-0.4) % Neut % (Auto) (45-73) % Lymph % (Auto) (20-40) % Henderson % (Auto) (2-11) % Eos % (Auto) (0-4) % Baso % (Auto) (0-2) % Lymph # (Auto) (1.2-4.9) X10*3/uL Henderson # (Auto) (0.1-1.2) X10*3/uL Eos # (Auto) (0.0-0.4) X10*3/uL Baso # (Auto) (0.0-0.2) X10*3/uL Abs Immat Gran (auto) (0.00-0.03) X10*3/uL Absolute Neuts (auto) (2.0-8.3) X10*3/uL Absolute Nucleated RBC (0.0-0.012) X10*3/uL Nucleated RBC % (auto) (0.0-0.2) /100WBC PT 11.0 (9.9-13.0) SEC INR 1.0 (0.9-1.1) APTT 33.0 (24.1-38.0) SEC Sodium (135-145) mmol/L Potassium (3.3-5.1) mmol/L Chloride (96-108) mmol/L Carbon Dioxide (22-29) mmol/L Anion Gap (12-20) BUN (9-16) mg/dL Creatinine (0.5-1.4) mg/dL Estim Creat Clear Calc Estimated GFR Random Glucose (60-115) mg/dL Lactic Acid (0.5-2.0) mmol/L Calcium (8.4-10.2) mg/dL Ferritin (20-250) ng/mL Total Bilirubin (0.0-1.0) mg/dL Direct Bilirubin (0.0-0.5) mg/dL AST (5-37) U/L ALT (0-40) U/L Alkaline Phosphatase (39-117) U/L Lactate Dehydrogenase (118-273) U/L Troponin I High Sens (<3.5-35.0) ng/L C-Reactive Protein (< or = 0.50) mg/dL B-Natriuretic Peptide (<100) pg/mL Total Protein (6.5-8.0) g/dL Albumin (3.5-5.0) g/dL Lipase (8-78) U/L Procalcitonin ng/mL Specimen Comment DELAY Coronavirus (PCR) (Negative) Influenza Type A (PCR) (Negative) Influenza Type B (PCR) (Negative) RSV RNA Qual (PCR) (Negative) <NEELIMA Fang - Last Filed: 04/26/21 01:40> Lab Results 04/25/21 04/25/21 04/25/21 Range/Units 20:51 20:51 20:51 WBC 8.6 (4.8-10.8) X10*3/uL RBC 4.87 (4.60-5.80) X10*6/uL Hgb 14.4 (14.0-18.0) g/dl Hct 42.9 (42-52) % MCV 88.1 (80-98) fL MCH 29.6 (27.0-33.0) pg MCHC 33.6 (31.0-36.0) g/dl RDW 14.3 (11.0-16.0) % Plt Count 273 (160-400) X10*3/uL MPV 10.1 (9.4-12.4) fL Immature Gran % (Auto) 0.6 H (0.0-0.4) % Neut % (Auto) 79.1 H (45-73) % Lymph % (Auto) 14.0 L (20-40) % Henderson % (Auto) 5.4 (2-11) % Eos % (Auto) 0.5 (0-4) % Baso % (Auto) 0.4 (0-2) % Lymph # (Auto) 1.2 (1.2-4.9) X10*3/uL Henderson # (Auto) 0.5 (0.1-1.2) X10*3/uL Eos # (Auto) 0.0 (0.0-0.4) X10*3/uL Baso # (Auto) 0.0 (0.0-0.2) X10*3/uL Abs Immat Gran (auto) 0.05 H (0.00-0.03) X10*3/uL Absolute Neuts (auto) 6.8 (2.0-8.3) X10*3/uL Absolute Nucleated RBC 0.000 (0.0-0.012) X10*3/uL Nucleated RBC % (auto) 0.0 (0.0-0.2) /100WBC PT (9.9-13.0) SEC INR (0.9-1.1) APTT (24.1-38.0) SEC Sodium 141 (135-145) mmol/L Potassium 4.9 (3.3-5.1) mmol/L Chloride 104 (96-108) mmol/L Carbon Dioxide 25 (22-29) mmol/L Anion Gap 17 (12-20) BUN 11 (9-16) mg/dL Creatinine 0.71 (0.5-1.4) mg/dL Estim Creat Clear Calc 139.3 Estimated GFR > 60 Random Glucose 137 H D (60-115) mg/dL Lactic Acid (0.5-2.0) mmol/L Calcium 9.9 D (8.4-10.2) mg/dL Ferritin 1449 H (20-250) ng/mL Total Bilirubin 4.5 H (0.0-1.0) mg/dL Direct Bilirubin 2.9 H (0.0-0.5) mg/dL AST 497 H (5-37) U/L ALT 1004 H (0-40) U/L Alkaline Phosphatase 405 H D (39-117) U/L Lactate Dehydrogenase 748 H (118-273) U/L Troponin I High Sens (<3.5-35.0) ng/L C-Reactive Protein 0.48 (< or = 0.50) mg/dL B-Natriuretic Peptide (<100) pg/mL Total Protein 7.5 (6.5-8.0) g/dL Albumin 4.5 (3.5-5.0) g/dL Lipase 15 (8-78) U/L Procalcitonin ng/mL Specimen Comment Coronavirus (PCR) NEGATIVE (Negative) Influenza Type A (PCR) NEGATIVE (Negative) Influenza Type B (PCR) NEGATIVE (Negative) RSV RNA Qual (PCR) NEGATIVE (Negative) 04/25/21 04/25/21 04/25/21 Range/Units 20:51 20:51 20:51 WBC (4.8-10.8) X10*3/uL RBC (4.60-5.80) X10*6/uL Hgb (14.0-18.0) g/dl Hct (42-52) % MCV (80-98) fL MCH (27.0-33.0) pg MCHC (31.0-36.0) g/dl RDW (11.0-16.0) % Plt Count (160-400) X10*3/uL MPV (9.4-12.4) fL Immature Gran % (Auto) (0.0-0.4) % Neut % (Auto) (45-73) % Lymph % (Auto) (20-40) % Henderson % (Auto) (2-11) % Eos % (Auto) (0-4) % Baso % (Auto) (0-2) % Lymph # (Auto) (1.2-4.9) X10*3/uL Henderson # (Auto) (0.1-1.2) X10*3/uL Eos # (Auto) (0.0-0.4) X10*3/uL Baso # (Auto) (0.0-0.2) X10*3/uL Abs Immat Gran (auto) (0.00-0.03) X10*3/uL Absolute Neuts (auto) (2.0-8.3) X10*3/uL Absolute Nucleated RBC (0.0-0.012) X10*3/uL Nucleated RBC % (auto) (0.0-0.2) /100WBC PT (9.9-13.0) SEC INR (0.9-1.1) APTT (24.1-38.0) SEC Sodium (135-145) mmol/L Potassium (3.3-5.1) mmol/L Chloride (96-108) mmol/L Carbon Dioxide (22-29) mmol/L Anion Gap (12-20) BUN (9-16) mg/dL Creatinine (0.5-1.4) mg/dL Estim Creat Clear Calc Estimated GFR Random Glucose (60-115) mg/dL Lactic Acid 1.5 (0.5-2.0) mmol/L Calcium (8.4-10.2) mg/dL Ferritin (20-250) ng/mL Total Bilirubin (0.0-1.0) mg/dL Direct Bilirubin (0.0-0.5) mg/dL AST (5-37) U/L ALT (0-40) U/L Alkaline Phosphatase (39-117) U/L Lactate Dehydrogenase (118-273) U/L Troponin I High Sens < 3.5 (<3.5-35.0) ng/L C-Reactive Protein (< or = 0.50) mg/dL B-Natriuretic Peptide < 10 (<100) pg/mL Total Protein (6.5-8.0) g/dL Albumin (3.5-5.0) g/dL Lipase (8-78) U/L Procalcitonin 0.17 ng/mL Specimen Comment Coronavirus (PCR) (Negative) Influenza Type A (PCR) (Negative) Influenza Type B (PCR) (Negative) RSV RNA Qual (PCR) (Negative) 04/25/21 04/26/21 Range/Units 23:05 05:33 WBC (4.8-10.8) X10*3/uL RBC (4.60-5.80) X10*6/uL Hgb (14.0-18.0) g/dl Hct (42-52) % MCV (80-98) fL MCH (27.0-33.0) pg MCHC (31.0-36.0) g/dl RDW (11.0-16.0) % Plt Count (160-400) X10*3/uL MPV (9.4-12.4) fL Immature Gran % (Auto) (0.0-0.4) % Neut % (Auto) (45-73) % Lymph % (Auto) (20-40) % Henderson % (Auto) (2-11) % Eos % (Auto) (0-4) % Baso % (Auto) (0-2) % Lymph # (Auto) (1.2-4.9) X10*3/uL Henderson # (Auto) (0.1-1.2) X10*3/uL Eos # (Auto) (0.0-0.4) X10*3/uL Baso # (Auto) (0.0-0.2) X10*3/uL Abs Immat Gran (auto) (0.00-0.03) X10*3/uL Absolute Neuts (auto) (2.0-8.3) X10*3/uL Absolute Nucleated RBC (0.0-0.012) X10*3/uL Nucleated RBC % (auto) (0.0-0.2) /100WBC PT 11.0 (9.9-13.0) SEC INR 1.0 (0.9-1.1) APTT 33.0 (24.1-38.0) SEC Sodium (135-145) mmol/L Potassium (3.3-5.1) mmol/L Chloride (96-108) mmol/L Carbon Dioxide (22-29) mmol/L Anion Gap (12-20) BUN (9-16) mg/dL Creatinine (0.5-1.4) mg/dL Estim Creat Clear Calc Estimated GFR Random Glucose (60-115) mg/dL Lactic Acid (0.5-2.0) mmol/L Calcium (8.4-10.2) mg/dL Ferritin (20-250) ng/mL Total Bilirubin (0.0-1.0) mg/dL Direct Bilirubin (0.0-0.5) mg/dL AST (5-37) U/L ALT (0-40) U/L Alkaline Phosphatase (39-117) U/L Lactate Dehydrogenase (118-273) U/L Troponin I High Sens (<3.5-35.0) ng/L C-Reactive Protein (< or = 0.50) mg/dL B-Natriuretic Peptide (<100) pg/mL Total Protein (6.5-8.0) g/dL Albumin (3.5-5.0) g/dL Lipase (8-78) U/L Procalcitonin ng/mL Specimen Comment DELAY Coronavirus (PCR) (Negative) Influenza Type A (PCR) (Negative) Influenza Type B (PCR) (Negative) RSV RNA Qual (PCR) (Negative) <Yuliet Jensen MD - Last Filed: 04/26/21 06:29> Discharge Plan Discharge Clinical Impression: Abnormal LFTs, Abdominal pain, Hepatitis <NEELIMA Fang - Last Filed: 04/26/21 01:40> Patient Disposition: Admitted As Inpatient <NEELIMA Fang - Last Filed: 04/26/21 01:40> Prescriptions: No Action primidone 50 mg tablet 100 mg PO QAM RF: 0 primidone 50 mg tablet 50 mg PO QPM RF: 0 atorvastatin 10 mg tablet 1 tab PO DAILY RF: 0 baclofen 10 mg tablet 1 tab PO BID RF: 0 divalproex [Depakote ER] 500 mg tablet extended release 24 hr 2 tab PO BEDTIME RF: 0 omeprazole 20 mg capsule,delayed release(DR/EC) 1 cap PO DAILY RF: 0 propranolol 120 mg capsule,extended release 24 hr 1 cap PO DAILY RF: 0 escitalopram oxalate [Lexapro] 20 mg tablet 1 tab PO DAILY RF: 0 escitalopram oxalate 5 mg tablet 1 tab PO DAILY RF: 0 aspirin 81 mg tablet,delayed release (DR/EC) 1 tab PO DAILY RF: 0 <NEELIMA Fang - Last Filed: 04/26/21 01:40>
[2021-04-25 21:00] LABS: MANUAL DIFF FLAG NO
[2021-04-25 21:02] LABS: Basophils Percent Auto 0.4 % (0-2); Eosinophils Percent Auto 0.5 % (0-4); Hematocrit 42.9 % (42-52); Hemoglobin 14.4 g/dl (14.0-18.0); Imm Gran Abs Auto 0.05 X10*3/uL (0.00-0.03); Imm Gran Pct Auto 0.6 % (0.0-0.4); Lymphocytes Absolute Auto 1.2 X10*3/uL (1.2-4.9); Mean Corpuscular HGB Conc 33.6 g/dl (31.0-36.0); Mean Corpuscular Hemoglobin 29.6 pg (27.0-33.0); Mean Corpuscular Volume 88.1 fL (80-98); Mean Platelet Volume 10.1 fL (9.4-12.4); Monocytes Absolute Auto 0.5 X10*3/uL (0.1-1.2); Monocytes Percent Auto 5.4 % (2-11); Neutrophils Absolute Auto 6.8 X10*3/uL (2.0-8.3); Neutrophils Percent Auto 79.1 % (45-73); Platelet Count 273 X10*3/uL (160-400); Red Blood Count 4.87 X10*6/uL (4.60-5.80); Red Cell Distribution Width 14.3 % (11.0-16.0); White Blood Count 8.6 X10*3/uL (4.8-10.8)
[2021-04-25] MEDS: Albuterol Sulfate 90 MCG 8 GM INHALER 4 PUFF INHALE (21:07)
[2021-04-25] MEDS: cefTRIAXone sodium 1 GM in 0.9 % Sodium Chloride 50 ML IV (21:10)
[2021-04-25 21:17] LABS: Lactic Acid 1.5 mmol/L (0.5-2.0)
[2021-04-25 21:24] LABS: B Type Natriuretic Peptide < 10 pg/mL (<100); Troponin-I High Sensitivity < 3.5 ng/L (<3.5-35.0)
[2021-04-25 21:26] LABS: Alanine Aminotransferase 1004 U/L (0-40); Albumin Level 4.5 g/dL (3.5-5.0); Alkaline Phosphatase 405 U/L (39-117); Anion Gap 17 (12-20); Aspartate Amino Transferase 497 U/L (5-37); Bilirubin Direct 2.9 mg/dL (0.0-0.5); Bilirubin Total 4.5 mg/dL (0.0-1.0); Blood Urea Nitrogen 11 mg/dL (9-16); C Reactive Protein 0.48 mg/dL (< or = 0.50); Calcium 9.9 mg/dL (8.4-10.2); Carbon Dioxide 25 mmol/L (22-29); Chloride 104 mmol/L (96-108); Creatinine Clr Calc Pharmacy 139.3; Estimated Glomerular Filt Rate > 60; Glucose Random 137 mg/dL (60-115); Lactate Dehydrogenase 748 U/L (118-273); Potassium 4.9 mmol/L (3.3-5.1); Sodium 141 mmol/L (135-145); Total Protein 7.5 g/dL (6.5-8.0)
[2021-04-25 21:37] LABS: Procalcitonin 0.17 ng/mL
[2021-04-25 21:48] LABS: Influenza A PCR NEGATIVE (Negative); Influenza B PCR NEGATIVE (Negative); Resp Syncy Virus RNA Qual PCR NEGATIVE (Negative); SARS COV2 PCR INHOUSE NEGATIVE (Negative)
[2021-04-25 22:33] LABS: Lipase 15 U/L (8-78)
[2021-04-25] MEDS: 0.9 % Sodium Chloride 1,000 ML 999 ML IVCONT (22:49)
[2021-04-25 23:06] LABS: Delay - Chemistry DELAY
[2021-04-26] MEDS: iohexoL 350 MG/ML 100 ML INFUS..BTL 85 ML IV (00:40)
[2021-04-26] MEDS: metroNIDAZOLE/NS 500 MG/100 ML PIGGYBACK 100 MG IV (01:51)
[2021-04-26 01:58] VITALS: BP 144/85; PULSE 64; RESP 16; TEMP 36.8; O2SAT 96
[2021-04-26 02:58] LABS: Ferritin 1449 ng/mL (20-250)
--- NOTE | 2021-04-26 05:07 | PC.NURSE ---
BS declines transfer @[id number]
[2021-04-26 06:24] VITALS: BP 121/57; PULSE 63; TEMP 36.8; O2SAT 95
[2021-04-26 06:44] LABS: Acetaminophen LAB < 1 mcg/mL (<30); Salicylate < 5.0 mg/dL (15-30)
[2021-04-26 06:51] LABS: Ethanol < 10 mg/dL
--- NOTE | 2021-04-26 09:41 | P.HPHOSP_ITS ---
History of Present Illness Date of Service: 04/26/21 Chief Complaint: abdominal pain This is a 51-year-old male with history of cerebral palsy hypertension, hyperlipidemia presents to the emergency department with abdominal pain. Patient reports abdominal pain that began approximately week ago. It is located primarily in the will of his abdomen. The pain has been fairly constant but is worse with inspiration and eating food. Last week he had associated nausea and dry heaving but this has resolved He reports 2 weeks of constipation. In the emergency department CT scan the abdomen showed possible cholecystitis, ultrasound was done and showed mild wall thickening and possible cholecystitis as well as common bile duct dilatation raising possibility of choledocholithiasis. Surgery did not feel that this represented cholecystitis. He was seen by GI who recommended MRCP. His LFTs were noted to be elevated with AST 497, ALT 1004, alk phosphatase 405 and LDH 748. For this reason the decision was made to admit him for further management. Review of Systems Review of Systems: Yes all other systems are reviewed and are negative Constitutional: Constitutional: Denies chills and Denies fever(s) Cardiovascular: Cardiovascular: Denies chest pain Respiratory: Respiratory: Denies cough PMFSH Medical History Bipolar 1 disorder Cerebral palsy Chronic GERD COVID-19 High cholesterol Family History Other Diabetes Social History (Updated 04/26/21 @ 09:51 by NEELIMA Morris) Alcohol intake: never Patient Tobacco Use Status: Tobacco use Unknown Use of substances other than those prescribed or required for medical reasons: No Advance Directives: No Advance Directives Information Provided: Yes Meds Allergies Allergy/AdvReac Type Severity Reaction Status Date / Time Penicillins Allergy Unknown u Verified 04/09/21 18:37 Active Medications: Current Medications Generic Name Dose Route Start Last Admin Trade Name Freq PRN Reason Stop Dose Admin Pharmacy Consult 1 each 04/26/21 01:19 Consult Rx Perform Med Rec MISCELLANE ONCE PRN Consult order Home Medications Medication Instructions Recorded Confirmed Last Taken Type aspirin 81 mg tablet,delayed 1 tab PO DAILY 09/22/20 04/26/21 1 Day Ago History release ~04/25/21 atorvastatin 10 mg tablet 1 tab PO DAILY 09/22/20 04/26/21 1 Day Ago History ~04/25/21 baclofen 10 mg tablet 1 tab PO BID 09/22/20 04/26/21 1 Day Ago History ~04/25/21 divalproex 500 mg tablet,extended 2 tab PO BEDTIME 09/22/20 04/26/21 2 Days Ago History release 24 hr (Depakote ER) ~04/24/21 escitalopram oxalate 20 mg tablet 1 tab PO DAILY 09/22/20 04/26/21 1 Day Ago History (Lexapro) ~04/25/21 omeprazole 20 mg capsule,delayed 1 cap PO DAILY 09/22/20 04/26/21 1 Day Ago History release ~04/25/21 primidone 50 mg tablet 50 mg PO QPM 09/22/20 04/26/21 1 Day Ago History ~04/25/21 primidone 50 mg tablet 100 mg PO QAM 09/22/20 04/26/21 1 Day Ago History ~04/25/21 propranolol 120 mg capsule,24 1 cap PO DAILY 09/22/20 04/26/21 1 Day Ago History hr,extended release ~04/25/21 escitalopram oxalate 10 mg tablet 1 tab PO DAILY 04/26/21 04/26/21 Unknown History melatonin 3 mg tablet 1 tab PO BEDTIME PRN 04/26/21 04/26/21 Unknown History Physical Exam Vital Signs and Narrative: Vital Signs: Last Vital Signs Temp 98.3 F 04/26/21 06:24 Pulse 63 04/26/21 06:24 Resp 16 04/26/21 01:58 BP 121/57 L 04/26/21 06:24 Pulse Ox 95 04/26/21 06:24 Body Mass Index 33.4 Const: Nutritional Appearance: well nourished Orientation/consciousness: patient oriented x3 HENMT: Head: Yes normocephalic and Yes atraumatic Eyes: Sclerae: sclerae normal Chest: Chest palpation & inspection: normal inspection of the chest Resp: Effort & Inspection: normal respiratory effort and no respiratory distress Cardio: Rate: regular rate Rhythm: regular rhythm GI: Other: mid abdominal tenderness Palpation (GI): Soft to palpation Neuro: General: patient oriented x3 Cranial nerves: Yes CN's II-XII intact bilaterally and Yes Bilaterally intact EOM present Extrem: Other: left leg brace, left arm contracture Results Labs CBC and Chem 7: 04/25/21 20:51 04/25/21 20:51 Labs: Laboratory Results - last 24 hr 04/25/21 04/25/21 04/25/21 20:51 20:51 20:51 MCV 88.1 MCH 29.6 MCHC 33.6 RDW 14.3 Plt Count 273 MPV 10.1 Immature Gran % (Auto) 0.6 H Neut % (Auto) 79.1 H Lymph % (Auto) 14.0 L [place] % (Auto) 5.4 Eos % (Auto) 0.5 Baso % (Auto) 0.4 Lymph # (Auto) 1.2 [place] # (Auto) 0.5 Eos # (Auto) 0.0 Baso # (Auto) 0.0 Abs Immat Gran (auto) 0.05 H Absolute Neuts (auto) 6.8 Absolute Nucleated RBC 0.000 Nucleated RBC % (auto) 0.0 PT INR APTT Anion Gap 17 Estim Creat Clear Calc 139.3 Estimated GFR > 60 Random Glucose 137 H D Lactic Acid Calcium 9.9 D Ferritin 1449 H Total Bilirubin 4.5 H Direct Bilirubin 2.9 H AST 497 H ALT 1004 H Alkaline Phosphatase 405 H D Lactate Dehydrogenase 748 H Troponin I High Sens C-Reactive Protein 0.48 B-Natriuretic Peptide Total Protein 7.5 Albumin 4.5 Lipase 15 Procalcitonin Specimen Comment Salicylates < 5.0 L Acetaminophen < 1 Ethyl Alcohol Coronavirus (PCR) NEGATIVE Influenza Type A (PCR) NEGATIVE Influenza Type B (PCR) NEGATIVE RSV RNA Qual (PCR) NEGATIVE 04/25/21 04/25/21 04/25/21 20:51 20:51 20:51 MCV MCH MCHC RDW Plt Count MPV Immature Gran % (Auto) Neut % (Auto) Lymph % (Auto) [place] % (Auto) Eos % (Auto) Baso % (Auto) Lymph # (Auto) [place] # (Auto) Eos # (Auto) Baso # (Auto) Abs Immat Gran (auto) Absolute Neuts (auto) Absolute Nucleated RBC Nucleated RBC % (auto) PT INR APTT Anion Gap Estim Creat Clear Calc Estimated GFR Random Glucose Lactic Acid 1.5 Calcium Ferritin Total Bilirubin Direct Bilirubin AST ALT Alkaline Phosphatase Lactate Dehydrogenase Troponin I High Sens < 3.5 C-Reactive Protein B-Natriuretic Peptide < 10 Total Protein Albumin Lipase Procalcitonin 0.17 Specimen Comment Salicylates Acetaminophen Ethyl Alcohol Coronavirus (PCR) Influenza Type A (PCR) Influenza Type B (PCR) RSV RNA Qual (PCR) 04/25/21 04/25/21 04/26/21 20:51 23:05 05:33 MCV MCH MCHC RDW Plt Count MPV Immature Gran % (Auto) Neut % (Auto) Lymph % (Auto) [place] % (Auto) Eos % (Auto) Baso % (Auto) Lymph # (Auto) [place] # (Auto) Eos # (Auto) Baso # (Auto) Abs Immat Gran (auto) Absolute Neuts (auto) Absolute Nucleated RBC Nucleated RBC % (auto) PT 11.0 INR 1.0 APTT 33.0 Anion Gap Estim Creat Clear Calc Estimated GFR Random Glucose Lactic Acid Calcium Ferritin Total Bilirubin Direct Bilirubin AST ALT Alkaline Phosphatase Lactate Dehydrogenase Troponin I High Sens C-Reactive Protein B-Natriuretic Peptide Total Protein Albumin Lipase Procalcitonin Specimen Comment DELAY Salicylates Acetaminophen Ethyl Alcohol < 10 Coronavirus (PCR) Influenza Type A (PCR) Influenza Type B (PCR) RSV RNA Qual (PCR) Imaging Radiologist's Impressions: Impressions Chest X-Ray 04/25/21 19:05 IMPRESSION: Bronchial wall thickening and hazy opacities in the left lower lobe may be infectious and/or inflammatory in etiology. Abdomen/Pelvis CT 04/26/21 00:00 IMPRESSION: 1. Gallbladder appears partially contracted, with mural prominence and surrounding stranding raising concern for cholecystitis in the setting of right upper quadrant pain. Correlation with ultrasound is recommended. 2. No acute intrathoracic findings. 3. Colonic diverticulosis. Chest CT 04/26/21 00:00 IMPRESSION: 1. Gallbladder appears partially contracted, with mural prominence and surrounding stranding raising concern for cholecystitis in the setting of right upper quadrant pain. Correlation with ultrasound is recommended. 2. No acute intrathoracic findings. 3. Colonic diverticulosis. Abdomen Ultrasound 04/26/21 01:38 IMPRESSION: Cholelithiasis. Contracted gallbladder demonstrates mild wall thickening, which could reflect changes of cholecystitis. In addition, the common bile duct is dilated raising the possibility of choledocholithiasis, which could be further assessed with MRCP or ERCP. Assessment and Plan (1) Abnormal LFTs: Status: Acute (2) Abdominal pain: Qualifiers: Abdominal location: right upper quadrant Qualified Code(s): R10.11 - Right upper quadrant pain Status: Acute This is a 51-year-old male with a history of cerebral palsy, bipolar disorder, hyperlipidemia who presents to the emergency department with one-week history of abdominal pain found to have elevated LFTs Abdominal pain MRCP to eval for CBD stones NPO, IVF Pain control GI consult Follow LFTs Further managemnt based on outcome of MRCP Mood disorder Depakote contraindicated due to elevated LFTs. Will hold. Psych consult for med adjustment Continue Lexapro Cerebral palsy Continue baclofen, primodone Hyperlipidemia Hold statin for elevated LFTs DVT prophylaxis mechanical devices Code status-full code Attending-Dr. Ortiz Quality Stroke Does the patient have a stroke diagnosis?: No VTE Prior VTE?: No VTE Risk Level:: Medical - moderate - high VTE Device Contraindication: N/A - Device Ordered VTE Drug Contraindication: N/A - Med Ordered
--- NOTE | 2021-04-26 09:55 | PC.NURSE ---
BROTHER DANDY WOODS CALLS TO SPEAK WITH RN, NUMBER TAKEN FOR HER TO GET BACK TO HIM SHE WAS WITH ANOTHER PT @ THIS TIME DANDY PHONE NUMBER [phone]
--- NOTE | 2021-04-26 10:55 | PM.GICN ---
History of Present Illness Data of Consult Service Date: 04/26/21 Requesting physician: Bladimir Ortiz Primary Care Provider: Jimmy Quinones DO HPI Reason for consult: abn LFt, gallstones 51-year-old male with history of cerebral palsy hypertension, hyperlipidemia and alcohol xs who I am seeing for assessment for abn LFT and abdo pain. He presents to the ED with RUQ abdominal pain for 5 days without any radiation and worse with eating food. He has also had dry heaves and nausea but no vomiting. Denies fever, but had some diarrhea without any blood. Appetite is poor, weight is stable/ He does admit to alcohol xs daily for 3 months and just stopped drinking few weeks ago. Denies taking any herbs but said he has been taking some vitamins, denies acetaminophen intake. LFTs were noted to be elevated with AST 497, ALT 1004, alk phosphatase [address] revealed possible cholecystitis and US with mild GB wall thickening and possible cholecystitis as well as common bile duct dilatation raising possibility of choledocholithiasis. MRCP doen with nml CBD, contracted GB , no stones in cbd Review of Systems Review of Systems: Constitutional: No Fever, No Chills, No Fatigue, No Malaise ENT/Mouth: No Ear Pain, No Nasal Congestion, No sore throat, No Rhinorrhea, No Swallowing Difficulty Eyes: No Eye Pain, No Swelling, No Redness Cardiovascular: + Chest Pain (resolved), + SOB(resolved), No Dyspnea on Exertion, No Orthopnea, No Edema, No Palpitations Respiratory: + Cough, No Sputum, No Wheezing, No Dyspnea Gastrointestinal: No Nausea, No Vomiting, No Diarrhea, No Constipation, No Abdominal pain Genitourinary: No irregular bleeding, No Dysuria, No Urinary Frequency, No Hematuria,No Flank Pain Musculoskeletal: No joint pain, No Myalgias, No Joint Swelling Skin: No Skin Lesions, No rash Neuro: No Weakness, No Numbness, No Dizziness, No Headache Yes all other systems are reviewed and are negative Constitutional: Constitutional: Denies chills and Denies fever(s) Cardiovascular: Cardiovascular: Denies chest pain, Reports Epigastric Pain, Denies rapid heart rate, Denies irregular heart rhythm and Denies dyspnea Respiratory: Respiratory: Denies chest congestion, Denies cough and Denies dyspnea Gastrointestinal: Gastrointestinal: Reports abdominal pain, Reports constipation, Denies diarrhea, Reports nausea and Denies vomiting [facility] Past Medical History Medical History Bipolar 1 disorder Cerebral palsy Chronic GERD COVID-19 High cholesterol Family History Family History Other Diabetes Social History Social History Alcohol intake: never Patient Tobacco Use Status: Tobacco use Unknown Use of substances other than those prescribed or required for medical reasons: No Advance Directives: No Advance Directives Information Provided: Yes Meds Allergies Allergy/AdvReac Type Severity Reaction Status Date / Time Penicillins Allergy Unknown u Verified 04/09/21 18:37 Active Medications: Current Medications Generic Name Dose Route Start Last Admin Trade Name Freq PRN Reason Stop Dose Admin Baclofen 10 mg 04/26/21 21:00 Baclofen 10 Mg Tablet PO BID [facility] Docusate Sodium 100 mg 04/26/21 10:38 Docusate Sodium 100 Mg Capsule PO DAILY PRN Constipation Escitalopram Oxalate 20 mg 04/27/21 09:00 Escitalopram Oxalate 20 Mg Tablet PO DAILY IKE Escitalopram Oxalate 10 mg 04/27/21 09:00 Escitalopram Oxalate 10 Mg Tablet PO DAILY [facility] Lactated Ringer's 1,000 mls @ 100 mls/hr 04/26/21 10:38 Lr IVCONT .Q10H [facility] Melatonin 3 mg 04/26/21 10:38 Melatonin 3 Mg Tablet PO BEDTIME PRN Insomnia Morphine Sulfate 2 mg 04/26/21 10:38 Morphine Sulfate 2 Mg/Ml Cartridge IVPUSH Q4H PRN Pain, Severe (Pain Scale 7-10) Protocol Omeprazole 20 mg 04/27/21 06:30 Omeprazole 20 Mg Capsule.Dr PO DAILY@0630 [facility] Ondansetron HCl 4 mg 04/26/21 10:38 Ondansetron Hcl 4 Mg/2 Ml Vial IVPUSH Q8H PRN Nausea and Vomiting Pharmacy Consult 1 each 04/26/21 01:19 Consult Rx Perform Med Rec MISCELLANE ONCE PRN Consult order Primidone 100 mg 04/26/21 10:38 Primidone 50 Mg Tablet PO DAILY [facility] Primidone 50 mg 04/26/21 21:00 Primidone 50 Mg Tablet PO BEDTIME [facility] Propranolol HCl 120 mg 04/27/21 09:00 Propranolol Hcl La 60 Mg Cap.Sa.24h PO DAILY [facility] Protocol Sodium Chloride 3 ml 04/26/21 16:00 0.9 % Sodium Chloride Flush 3 Ml [facility] Medications Medication Instructions Recorded Confirmed Last Taken Type aspirin 81 mg tablet,delayed 1 tab PO DAILY 09/22/20 04/26/21 1 Day Ago History release ~04/25/21 atorvastatin 10 mg tablet 1 tab PO DAILY 09/22/20 04/26/21 1 Day Ago History ~04/25/21 baclofen 10 mg tablet 1 tab PO BID 09/22/20 04/26/21 1 Day Ago History ~04/25/21 divalproex 500 mg tablet,extended 2 tab PO BEDTIME 09/22/20 04/26/21 2 Days Ago History release 24 hr (Depakote ER) ~04/24/21 escitalopram oxalate 20 mg tablet 1 tab PO DAILY 09/22/20 04/26/21 1 Day Ago History (Lexapro) ~04/25/21 omeprazole 20 mg capsule,delayed 1 cap PO DAILY 09/22/20 04/26/21 1 Day Ago History release ~04/25/21 primidone 50 mg tablet 50 mg PO QPM 09/22/20 04/26/21 1 Day Ago History ~04/25/21 primidone 50 mg tablet 100 mg PO QAM 09/22/20 04/26/21 1 Day Ago History ~04/25/21 propranolol 120 mg capsule,24 1 cap PO DAILY 09/22/20 04/26/21 1 Day Ago History hr,extended release ~04/25/21 escitalopram oxalate 10 mg tablet 1 tab PO DAILY 04/26/21 04/26/21 Unknown History melatonin 3 mg tablet 1 tab PO BEDTIME PRN 04/26/21 04/26/21 Unknown History Physical Exam Vital Signs: Vital Signs: Last Vital Signs Temp 98.3 F 04/26/21 06:24 Pulse 63 04/26/21 06:24 Resp 16 04/26/21 01:58 BP 121/57 L 04/26/21 06:24 Pulse Ox 95 04/26/21 06:24 Body Mass Index 33.4 Const: General: cooperative, healthy appearing and no acute distress Nutritional Appearance: well nourished Orientation/consciousness: patient oriented x3 Limitations: no limitations and physical limitations HENMT: Head: Yes normal to inspection, Yes normocephalic and Yes atraumatic Ears: hearing grossly normal bilaterally General nose exam: Normal external nose present Face and sinus: Yes normal facial exam Eyes: General: appearance normal, both eyes and all related structures Sclerae: sclerae normal EOM: EOMs intact bilaterally Neck: Neck: Yes normal visual inspection Chest: Chest palpation & inspection: normal inspection of the chest Resp: Effort & Inspection: normal respiratory effort, no audible wheezes, no cough and no respiratory distress Auscultation: crackles bilateral at the base Cardio: Rate: regular rate Rhythm: regular rhythm Heart sounds: S1 normal heart sound present and S2 normal heart sound present GI: Other: mid abdominal tenderness Inspection: Yes normal to inspection Palpation (GI): Soft to palpation, Tenderness to palpation present (GI) in the RUQ; Negative for Valiente's sign negative, no guarding and not rigid Percussion: Yes normal to percussion and No Fluid wave present Auscultation: normal bowel sounds Rectal Exam - Male: Yes deferred Skin: Other: Normal color, warm, dry, no rash Rashes: no rashes Wounds: no wounds Neuro: General: patient oriented x3 Cranial nerves: Yes CN's II-XII intact bilaterally and Yes Bilaterally intact EOM present Gait exam (Neuro): Normal gait present Extrem: Other: left leg brace, left arm contracture General: Yes normal to inspection, Yes no pedal edema, Yes no calf tenderness and No edema Results Labs CBC & Chem 7: 04/27/21 05:28 04/27/21 05:28 Labs: Short CBC 04/25/21 Range/Units 20:51 WBC 8.6 (4.8-10.8) X10*3/uL Hgb 14.4 (14.0-18.0) g/dl Hct 42.9 (42-52) % Plt Count 273 (160-400) X10*3/uL BMP 04/25/21 20:51 Sodium 141 Potassium 4.9 Chloride 104 Carbon Dioxide 25 BUN 11 Creatinine 0.71 Calcium 9.9 D Liver Function 04/25/21 Range/Units 20:51 Total Bilirubin 4.5 H (0.0-1.0) mg/dL Direct Bilirubin 2.9 H (0.0-0.5) mg/dL AST 497 H (5-37) U/L ALT 1004 H (0-40) U/L Alkaline Phosphatase 405 H D (39-117) U/L Albumin 4.5 (3.5-5.0) g/dL Assessment and Plan (1) Abnormal LFTs: Status: Acute (2) Abdominal pain: Qualifiers: Abdominal location: right upper quadrant Qualified Code(s): R10.11 - Right upper quadrant pain Status: Acute 1. suspect his abn LFT are due to gallstones and he has probably passed stones, would still check Hep serologies incl hep A. PLAN: 1/ No ERCP at thsi time 2/ Hep serologies 3/ COnsider HIDA scan to r/o cholecystitis. 4/ watch for alcohol withdrawal Procedures Date of Service Date of Service: 04/26/21
--- NOTE | 2021-04-26 11:04 | PC.NURSE ---
Brother Carlos called to check on patient. Update given. He is at [phone]. He will be in to see patient when able (lives in [place] and does not drive). Reports brother Otoniel will be in today to visit. Visitng guidelines reviewed. Carlos is going to call [employer] and notify them Dillon will not be at work for a few days. Will ask Nancy Ibrahim to call Carlos with update once settled. Also, this technical document writer confirmed patient is non telemetry for admission.
[2021-04-26] MEDS: Primidone 50 MG TABLET 100 MG PO (14:19)
[2021-04-26] MEDS: Lactated Ringers 1,000 ML 100 ML IVCONT ×2 (14:19→15:42)
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
[2021-04-26] MEDS: 0.9 % Sodium Chloride Flush 3 ML SYRINGE IVFLUSH (15:42)
--- NOTE | 2021-04-26 16:34 | P.CONGS_ITS ---
History of Present Illness Consult details Consult date: 04/26/21 Narrative: 51-year-old male patient with past history of bipolar disorder, GERD, hyperlipidemia, and cerebral palsy presenting with complaints of abdominal pain in the right upper quadrant radiating to the right flank. The pain is associated with constipation, nausea, and anorexia. Pain seems to increase with eating. Workup with an ultrasound and CT revealed gallstones within the gallbladder with the possibility of a thickened wall. No pericholecystic fluid is noted. Common bile duct was noted to be normal. LFTs however were markedly elevated. For this reason MRCP was requested. This also reveals a thickened gallbladder wall which is nondistended. No common bile duct stones were identified. Surgical consultation was requested for possible cholecystectomy. He denies a previous history of abdominal surgeries. Review of Systems Review of Systems: Yes all other systems are reviewed and are negative Constitutional: Constitutional: Denies chills and Denies fever(s) Cardiovascular: Cardiovascular: Denies chest pain, Reports Epigastric Pain, Denies rapid heart rate, Denies irregular heart rhythm and Denies dyspnea Respiratory: Respiratory: Denies chest congestion, Denies cough and Denies dyspnea Gastrointestinal: Gastrointestinal: Reports abdominal pain, Reports constipation, Denies diarrhea, Reports nausea and Denies vomiting PMFSH Past Medical History Medical History Bipolar 1 disorder Cerebral palsy Chronic GERD COVID-19 High cholesterol Family History Family History Other Diabetes Social History Social History Alcohol intake: never Patient Tobacco Use Status: Tobacco use Unknown Use of substances other than those prescribed or required for medical reasons: No Advance Directives: No Advance Directives Information Provided: Yes Meds Allergies Allergy/AdvReac Type Severity Reaction Status Date / Time Penicillins Allergy Unknown u Verified 04/09/21 18:37 Active Medications: Current Medications Generic Name Dose Route Start Last Admin Trade Name Freq PRN Reason Stop Dose Admin Baclofen 10 mg 04/26/21 21:00 Baclofen 10 Mg Tablet PO BID [facility] Docusate Sodium 100 mg 04/26/21 10:38 Docusate Sodium 100 Mg Capsule PO DAILY PRN Constipation Escitalopram Oxalate 20 mg 04/27/21 09:00 Escitalopram Oxalate 20 Mg Tablet PO DAILY [facility] Escitalopram Oxalate 10 mg 04/27/21 09:00 Escitalopram Oxalate 10 Mg Tablet PO DAILY [facility] Lactated Ringer's 1,000 mls @ 100 mls/hr 04/26/21 10:38 04/26/21 15:42 Lr IVCONT 100 mls/hr .Q10H IKE Administration Melatonin 3 mg 04/26/21 10:38 Melatonin 3 Mg Tablet PO BEDTIME PRN Insomnia Morphine Sulfate 2 mg 04/26/21 10:38 Morphine Sulfate 2 Mg/Ml Cartridge IVPUSH Q4H PRN Pain, Severe (Pain Scale 7-10) Protocol Omeprazole 20 mg 04/27/21 06:30 Omeprazole 20 Mg Capsule. PO DAILY@0630 [facility] Ondansetron HCl 4 mg 04/26/21 10:38 Ondansetron Hcl 4 Mg/2 Ml Vial IVPUSH Q8H PRN Nausea and Vomiting Pharmacy Consult 1 each 04/26/21 01:19 Consult Rx Perform Med Rec MISCELLANE ONCE PRN Consult order Primidone 100 mg 04/26/21 10:38 04/26/21 14:19 Primidone 50 Mg Tablet PO 100 mg DAILY [facility] Administration Primidone 50 mg 04/26/21 21:00 Primidone 50 Mg Tablet PO BEDTIME [facility] Propranolol HCl 120 mg 04/27/21 09:00 Propranolol Hcl La 60 Mg Cap.Sa.24h PO DAILY [facility] Protocol Sodium Chloride 3 ml 04/26/21 16:00 04/26/21 15:42 0.9 % Sodium Chloride Flush 3 Ml Syringe IVFLUSH 3 ml QSHIFT [facility] Administration Home Medications Medication Instructions Recorded Confirmed Last Taken Type aspirin 81 mg tablet,delayed 1 tab PO DAILY 09/22/20 04/26/21 1 Day Ago History release ~04/25/21 atorvastatin 10 mg tablet 1 tab PO DAILY 09/22/20 04/26/21 1 Day Ago History ~04/25/21 baclofen 10 mg tablet 1 tab PO BID 09/22/20 04/26/21 1 Day Ago History ~04/25/21 divalproex 500 mg tablet,extended 2 tab PO BEDTIME 09/22/20 04/26/21 2 Days Ago History release 24 hr (Depakote ER) ~04/24/21 escitalopram oxalate 20 mg tablet 1 tab PO DAILY 09/22/20 04/26/21 1 Day Ago History (Lexapro) ~04/25/21 omeprazole 20 mg capsule,delayed 1 cap PO DAILY 09/22/20 04/26/21 1 Day Ago History release ~04/25/21 primidone 50 mg tablet 50 mg PO QPM 09/22/20 04/26/21 1 Day Ago History ~04/25/21 primidone 50 mg tablet 100 mg PO QAM 09/22/20 04/26/21 1 Day Ago History ~04/25/21 propranolol 120 mg capsule,24 1 cap PO DAILY 09/22/20 04/26/21 1 Day Ago History hr,extended release ~04/25/21 escitalopram oxalate 10 mg tablet 1 tab PO DAILY 04/26/21 04/26/21 Unknown History melatonin 3 mg tablet 1 tab PO BEDTIME PRN 04/26/21 04/26/21 Unknown History Physical Exam Vital Signs: Vital Signs: Last Vital Signs Temp 98.3 F 04/26/21 06:24 Pulse 63 04/26/21 06:24 Resp 16 04/26/21 01:58 BP 121/57 L 04/26/21 06:24 Pulse Ox 95 04/26/21 06:24 Body Mass Index 33.4 Const: General: cooperative and no acute distress Nutritional Appearance: well nourished Orientation/consciousness: patient oriented x3 Limitations: physical limitations HENMT: Head: Yes normocephalic and Yes atraumatic Ears: hearing grossly normal bilaterally Resp: Effort & Inspection: normal respiratory effort, no audible wheezes and no cough GI: Palpation (GI): Soft to palpation, Tenderness to palpation present (GI) in the RUQ; Negative for Valiente's sign negative and not rigid Percussion: Yes normal to percussion and No Fluid wave present Auscultation: normal bowel sounds Rectal Exam - Male: Yes deferred Skin: Other: Normal color, warm, dry, no rash Neuro: General: patient oriented x3 Extrem: General: No edema Results Labs Result diagrams: 04/25/21 20:51 04/25/21 20:51 Labs: Abnormal lab results 04/25/21 04/25/21 Range/Units 20:51 20:51 Immature Gran % (Auto) 0.6 H (0.0-0.4) % Neut % (Auto) 79.1 H (45-73) % Lymph % (Auto) 14.0 L (20-40) % Abs Immat Gran (auto) 0.05 H (0.00-0.03) X10*3/uL Random Glucose 137 H D (60-115) mg/dL Ferritin 1449 H (20-250) ng/mL Total Bilirubin 4.5 H (0.0-1.0) mg/dL Direct Bilirubin 2.9 H (0.0-0.5) mg/dL AST 497 H (5-37) U/L ALT 1004 H (0-40) U/L Alkaline Phosphatase 405 H D (39-117) U/L Lactate Dehydrogenase 748 H (118-273) U/L Salicylates < 5.0 L (15-30) mg/dL Short CBC 04/25/21 Range/Units 20:51 WBC 8.6 (4.8-10.8) X10*3/uL Hgb 14.4 (14.0-18.0) g/dl Hct 42.9 (42-52) % Plt Count 273 (160-400) X10*3/uL BMP 04/25/21 20:51 Sodium 141 Potassium 4.9 Chloride 104 Carbon Dioxide 25 BUN 11 Creatinine 0.71 Calcium 9.9 D Liver Function 04/25/21 Range/Units 20:51 Total Bilirubin 4.5 H (0.0-1.0) mg/dL Direct Bilirubin 2.9 H (0.0-0.5) mg/dL AST 497 H (5-37) U/L ALT 1004 H (0-40) U/L Alkaline Phosphatase 405 H D (39-117) U/L Albumin 4.5 (3.5-5.0) g/dL All other labs normal. Assessment and Plan (1) Abnormal LFTs: Status: Acute (2) Abdominal pain: Qualifiers: Abdominal location: right upper quadrant Qualified Code(s): R10.11 - Right upper quadrant pain Status: Acute 51-year-old male patient with multiple medical problems presenting with abdominal pain in the right upper quadrant which seems to be aggravated with food. On examination the patient is tender in the right upper quadrant. Ultrasound and CT confirms gallstones within the gallbladder with a possible thickened wall. MRCP is negative for common bile duct stones. There is some question whether it medications are causing the elevation of the transaminases. Will await Gastroenterology input but could potentially add him onto the OR schedule for Saturday. Procedures Date of Service Date of Service: 04/26/21
[2021-04-26 19:27] VITALS: BP 139/66; PULSE 59; RESP 18; TEMP 36.9; O2SAT 96
[2021-04-26] MEDS: Baclofen 10 MG TABLET PO (21:19)
[2021-04-26] MEDS: Primidone 50 MG TABLET PO (21:20)
[2021-04-27] VITALS: BP 135/58; PULSE 63; RESP 18; TEMP 36.8; O2SAT 98
[2021-04-27] MEDS: Lactated Ringers 1,000 ML 100 ML IVCONT (00:43)
--- NOTE | 2021-04-27 03:32 | PM.EVENT ---
Event Note Date of Service: 04/27/21 Event Note: Bacteremia: Blood cx growing GPC; final results pending s/w IV vanc ID consult
[2021-04-27 04:00] VITALS: BP 137/64; PULSE 68; RESP 18; TEMP 37; O2SAT 98
[2021-04-27 05:49] LABS: Hematocrit 38.3 % (42-52); Hemoglobin 12.8 g/dl (14.0-18.0); Mean Corpuscular HGB Conc 33.4 g/dl (31.0-36.0); Mean Corpuscular Hemoglobin 28.8 pg (27.0-33.0); Mean Corpuscular Volume 86.3 fL (80-98); Mean Platelet Volume 10.1 fL (9.4-12.4); Platelet Count 229 X10*3/uL (160-400); Red Blood Count 4.44 X10*6/uL (4.60-5.80); White Blood Count 4.9 X10*3/uL (4.8-10.8)
[2021-04-27 06:08] LABS: Alanine Aminotransferase 576 U/L (0-40); Albumin Level 3.7 g/dL (3.5-5.0); Alkaline Phosphatase 329 U/L (39-117); Anion Gap 14 (12-20); Aspartate Amino Transferase 158 U/L (5-37); Bilirubin Direct 0.7 mg/dL (0.0-0.5); Bilirubin Total 1.5 mg/dL (0.0-1.0); Blood Urea Nitrogen 10 mg/dL (9-16); Calcium 8.9 mg/dL (8.4-10.2); Carbon Dioxide 24 mmol/L (22-29); Chloride 104 mmol/L (96-108); Creatinine Clr Calc Pharmacy 152.2; Estimated Glomerular Filt Rate > 60; Glucose Random 103 mg/dL (60-115); Sodium 138 mmol/L (135-145)
[2021-04-27] MEDS: vancomycin HCL 1,500 MG in 0.9 % Sodium Chloride 500 ML 333.33 MG IV (06:32)
[2021-04-27] MEDS: Omeprazole 20 MG CAPSULE.DR PO (06:40)
[2021-04-27 07:52] VITALS: BP 143/78; PULSE 65; RESP 17; TEMP 36.9; O2SAT 91
--- NOTE | 2021-04-27 08:05 | PHA.PROG ---
Admission Date/Time: April 26, 2021 09:18 Indication: BACTEREMIA Weight in k.79 kg Adjusted body weight in K KG [place] body weight in K.4 KG Obesity Dosing Indication % IBW: Serum Creatinine - Last 168 Hours 04/25/21 04/27/21 20:51 05:28 Creatinine 0.71 0.65 Estimated CrCl and GFR - Last 168 Hours 04/25/21 04/27/21 20:51 05:28 Estim Creat Clear Calc 139.3 152.2 Estimated GFR > 60 > 60 Vancomycin Loading Dose: 1500 MG IN ED Current Vancomycin Dosing Regimen: 1250 MG Q12H Vancomycin Monitoring using AUC goal of 400 - 600 range with trough as surrogate marker: PREDICTED AUC 460 PREDICTED TROUGH 14.1 Date and Time for next Vancomycin Level to be drawn: 04/28/21 @1700 Pharmacist Comments on Vancomycin Plan: Vancomycin dosing will take advantage of [employer] as a clinical decision support tool that uses Bayesian modeling to calculate individual patient's pharmacokinetic parameters and forecast the patient's drug concentration time course with the target goal AUC 24 range of 400 - 600 mg/L/hr.
--- NOTE | 2021-04-27 08:12 | P.PNGS_ITS ---
Subjective Subjective Date of Service: 04/27/21 Interval history: Patient feels improved today with no further abdominal pain, nausea, or vomiting. He is hungry and feels his pain is better because he is not eating. Physical Exam Vital Signs: Vital Signs: Last Vital Signs Temp 98.4 F 04/27/21 07:52 Pulse 65 04/27/21 07:52 Resp 17 04/27/21 07:52 BP 143/78 H 04/27/21 07:52 Pulse Ox 91 L 04/27/21 07:52 Body Mass Index 33.4 Const: General: comfortable and well developed Nutritional Appearance: well nourished Orientation/consciousness: patient oriented x3 Resp: Effort & Inspection: normal respiratory effort, no cough and no respiratory distress GI: Inspection: Yes normal to inspection Palpation (GI): Soft to palpation, nontender, no guarding, not rigid and No hepatosplenomegaly present Auscultation: normal bowel sounds Skin: General skin exam: no rashes or lesions noted Neuro: General: patient oriented x3 Extrem: General: Yes no clubbing, cyanosis or edema Procedures Date of Service Date of Service: 04/27/21 Progress Note: A&P Assessment and plan (1) Cholecystitis, acute with cholelithiasis: Status: Acute Assessment and Plan: 51-year-old male patient with multiple medical problems presenting with abdominal pain right upper quadrant found to have gallstones in the gallbladder with possible thickening of the gallbladder wall. Liver function tests appear t o be improving an MRCP reveals no common bile duct stone. Patient is symptomatic clean improved today and is requesting we proceed with surgery. After discussion of the procedure, risks, and alternatives, he consents to a laparoscopic or possible open cholecystectomy. He will be added onto the operative schedule for tomorrow. He can he today for from my standpoint of medically appropriate but should be NPO after midnight. Fall Risk Details Current Medications: Current Medications Generic Name Dose Route Start Last Admin Trade Name Freq PRN Reason Stop Dose Admin Baclofen 10 mg 04/26/21 21:00 04/26/21 21:19 Baclofen 10 Mg Tablet PO 10 mg BID IKE Administration Docusate Sodium 100 mg 04/26/21 10:38 Docusate Sodium 100 Mg Capsule PO DAILY PRN Constipation Escitalopram Oxalate 20 mg 04/27/21 09:00 Escitalopram Oxalate 20 Mg Tablet PO DAILY IKE Escitalopram Oxalate 10 mg 04/27/21 09:00 Escitalopram Oxalate 10 Mg Tablet PO DAILY IKE Lactated Ringer's 1,000 mls @ 100 mls/hr 04/26/21 10:38 04/27/21 00:43 Lr IVCONT 100 mls/hr .Q10H IKE Administration Vancomycin HCl 1,250 mg/ 250 mls @ 166.667 mls/hr 04/27/21 18:00 Sodium Chloride IV Q12H IKE Melatonin 3 mg 04/26/21 10:38 Melatonin 3 Mg Tablet PO BEDTIME PRN Insomnia Morphine Sulfate 2 mg 04/26/21 10:38 Morphine Sulfate 2 Mg/Ml Cartridge IVPUSH Q4H PRN Pain, Severe (Pain Scale 7-10) Protocol Omeprazole 20 mg 04/27/21 06:30 04/27/21 06:40 Omeprazole 20 Mg Capsule.Dr PO 20 mg DAILY@0630 IKE Administration Ondansetron HCl 4 mg 04/26/21 10:38 Ondansetron Hcl 4 Mg/2 Ml Vial IVPUSH Q8H PRN Nausea and Vomiting Pharmacy Consult 1 each 04/26/21 01:19 Consult Rx Perform Med Rec MISCELLANE ONCE PRN Consult order Pharmacy Consult 1 each 04/27/21 03:31 Consult Rx Vancomycin Dosing MISCELLANE DAILY PRN Consult order Primidone 100 mg 04/26/21 10:38 04/26/21 14:19 Primidone 50 Mg Tablet PO 100 mg DAILY IKE Administration Primidone 50 mg 04/26/21 21:00 04/26/21 21:20 Primidone 50 Mg Tablet PO 50 mg BEDTIME IKE Administration Propranolol HCl 120 mg 04/27/21 09:00 Propranolol Hcl La 60 Mg Cap.Sa.24h PO DAILY [facility] Protocol Sodium Chloride 3 ml 04/26/21 16:00 04/27/21 00:42 0.9 % Sodium Chloride Flush 3 Ml Syringe IVFLUSH Not Given QSHIFT [facility] Time Spent With Patient Time: Total time spent is greater than 50% in coordination of care (as documented) at patient's floor/unit and/or counseling patient: Time with patient: 15 - 24 minutes Quality Stroke Does the patient have a stroke diagnosis?: No VTE Prior VTE?: No VTE Risk Level:: Medical - moderate - high VTE Device Contraindication: N/A - Device Ordered VTE Drug Contraindication: N/A - Med Ordered
[2021-04-27] MEDS: Primidone 50 MG TABLET 100 MG PO (09:27)
[2021-04-27] MEDS: Escitalopram Oxalate 10 MG TABLET PO (09:27)
[2021-04-27] MEDS: Escitalopram Oxalate 20 MG TABLET PO (09:27)
[2021-04-27] MEDS: Propranolol HCL LA 60 MG CAP.SA.24H 120 MG PO (09:27)
[2021-04-27] MEDS: Baclofen 10 MG TABLET PO ×2 (09:27→20:12)
[2021-04-27 09:33] LABS: HBS Num1 2.05 mIU/mL (0-7.99); HBc Num1 0.06 S/CO (0.00-0.79); HBsAGNum1 0.16 S/CO (0.00-0.99); Hepatitis B Core Antibody Nonreactive (Nonreactive); Hepatitis B Surface Antigen Negative (Negative); ~HepC Num1 0.09 S/CO (0.00-0.79); ~Hepatitis B Surface Antibody NONREACTIVE (Nonreactive); ~Hepatitis C Antibody Nonreactive (Nonreactive)
--- NOTE | 2021-04-27 11:16 | MHC.CM.PN ---
CM MET WITH PT WHO REPORTS HE LIVES ALONE AND IS CURRENTLY INDEPENDENTLY COMPLETING ALL ADL'S. PT REPORTS HE WAS APPROVED FOR [employer]RS THROUGH [employer] BUT HAS BEEN UNABLE TO FIND ANYONE TO FILL THE HOURS. PT REPORTS HE IS SCARED TO POST ONLINE TO FIND SOMEONE BECAUSE IT COULD BE DANGEROUS. PT REPORTS HE USES A CANE TO AMBULATE PT DECLINES TO COMPLETE A HCP TODAY PT CONFIRMS HIS PCP IS BRAVO CASON IMM DELIVERED CURRENT DC PLAN IS HOME WITH NO SERVICES [facility] WILL COMPLETE POST DC ASSESSMENT PT REPORTS HIS BROTHER WILL TRANSPORT
[2021-04-27 11:38] VITALS: BP 133/71; PULSE 62; RESP 16; TEMP 36.3; O2SAT 93
--- NOTE | 2021-04-27 12:38 | HO.PM.IMPN ---
Subjective Subjective Date of Service: 04/27/21 Interval History: Seen and examined this morning Follow-up for elevated LFTs, abdominal pain No overnight events Patient denies any abdominal pain at this time. No nausea, no vomiting. MRCP showed no CBD stone Review of Systems Review of Systems: Yes all other systems are reviewed and are negative Constitutional Constitutional: Denies chills and Denies fever(s) Cardiovascular Cardiovascular: Denies chest pain Respiratory Respiratory: Denies cough Gastrointestinal Gastrointestinal: Denies abdominal pain Physical Exam Vital Signs: Vital Signs: Last Vital Signs Temp 97.4 F 04/27/21 11:38 Pulse 62 04/27/21 11:38 Resp 16 04/27/21 11:38 BP 133/71 04/27/21 11:38 Pulse Ox 93 04/27/21 11:38 Body Mass Index 33.4 Const: Nutritional Appearance: well nourished Orientation/consciousness: patient oriented x3 HENMT: Head: Yes normocephalic and Yes atraumatic Eyes: Sclerae: sclerae normal Chest: Chest palpation & inspection: normal inspection of the chest Resp: Effort & Inspection: normal respiratory effort and no respiratory distress Cardio: Rate: regular rate Rhythm: regular rhythm GI: Other: Abdomen soft, nontender, nondistended, positive bowel sounds Palpation (GI): Soft to palpation Neuro: General: patient oriented x3 Cranial nerves: Yes CN's II-XII intact bilaterally and Yes Bilaterally intact EOM present Extrem: Other: left leg brace, left arm contracture Objective Data Active Medications Baclofen (Baclofen 10 Mg Tablet) 10 mg PO BID [facility] Last Admin: 04/27/21 09:27 Dose: 10 mg Documented by: MARINA Docusate Sodium (Docusate Sodium 100 Mg Capsule) 100 mg PO DAILY PRN PRN Reason: Constipation Escitalopram Oxalate (Escitalopram Oxalate 20 Mg Tablet) 20 mg PO DAILY [facility] Last Admin: 04/27/21 09:27 Dose: 20 mg Documented by: MARINA Escitalopram Oxalate (Escitalopram Oxalate 10 Mg Tablet) 10 mg PO DAILY [facility] Last Admin: 04/27/21 09:27 Dose: 10 mg Documented by: MARINA Lactated Ringer's (Lr) 1,000 mls @ 100 mls/hr IVCONT .Q10H [facility] Last Admin: 04/27/21 00:43 Dose: 100 mls/hr Documented by: JOSE EDUARDO Vancomycin HCl 1,250 mg/ (Sodium Chloride) 250 mls @ 166.667 mls/hr IV Q12H [facility] Melatonin (Melatonin 3 Mg Tablet) 3 mg PO BEDTIME PRN PRN Reason: Insomnia Morphine Sulfate (Morphine Sulfate 2 Mg/Ml Cartridge) 2 mg IVPUSH Q4H PRN; Protocol PRN Reason: Pain, Severe (Pain Scale 7-10) Omeprazole (Omeprazole 20 Mg Capsule.Dr) 20 mg PO DAILY@0630 [facility] Last Admin: 04/27/21 06:40 Dose: 20 mg Documented by: JOSE EDUARDO Ondansetron HCl (Ondansetron Hcl 4 Mg/2 Ml Vial) 4 mg IVPUSH Q8H PRN PRN Reason: Nausea and Vomiting Pharmacy Consult (Consult Rx Perform Med Rec) 1 each MISCELLANE ONCE PRN PRN Reason: Consult order Pharmacy Consult (Consult Rx Vancomycin Dosing) 1 each MISCELLANE DAILY PRN PRN Reason: Consult order Primidone (Primidone 50 Mg Tablet) 100 mg PO DAILY [facility] Last Admin: 04/27/21 09:27 Dose: 100 mg Documented by: MARINA Primidone (Primidone 50 Mg Tablet) 50 mg PO BEDTIME [facility] Last Admin: 04/26/21 21:20 Dose: 50 mg Documented by: MERLE Propranolol HCl (Propranolol Hcl La 60 Mg Cap.Sa.24h) 120 mg PO DAILY [facility]; Protocol Last Admin: 04/27/21 09:27 Dose: 120 mg Documented by: MARINA Sodium Chloride (0.9 % Sodium Chloride Flush 3 Ml Syringe) 3 ml IVFLUSH QSHIFT [facility] Last Admin: 04/27/21 09:28 Dose: Not Given Documented by: MARINA Non-Admin Reason: IV Running Labs CBC & Chem 7: 04/27/21 05:28 04/27/21 05:28 Labs: Laboratory Results - last 24 hr 04/26/21 04/27/21 04/27/21 09:50 05:28 05:28 MCV 86.3 MCH 28.8 MCHC 33.4 RDW 14.0 Plt Count 229 MPV 10.1 Absolute Nucleated RBC 0.000 Nucleated RBC % (auto) 0.0 Anion Gap 14 Estim Creat Clear Calc 152.2 Estimated GFR > 60 Random Glucose 103 Calcium 8.9 D Total Bilirubin 1.5 H Direct Bilirubin 0.7 H AST 158 H ALT 576 H Alkaline Phosphatase 329 H Total Protein 6.0 L Albumin 3.7 Hep Bs Antigen Negative Hep Bs Antibody NONREACTIVE Hep B Core Total Ab Nonreactive Hepatitis C Ab (EIA) Nonreactive Microbiology Microbiology Results: Microbiology 04/25/21 20:51 Blood Culture - Preliminary Blood - Venous Prelim: GPC Gram Stain only 04/25/21 20:51 Blood Culture - Preliminary Blood - Venous No growth after 24 hours. Assessment and Plan (1) Cholecystitis, acute with cholelithiasis: Status: Acute (2) Unspecified mood [affective] disorder: Status: Acute (3) Abnormal LFTs: Status: Acute Assessment and Plan: This is a 51-year-old male with a history of cerebral palsy, bipolar disorder, hyperlipidemia who presents to the emergency department with one-week history of abdominal pain found to have elevated LFTs Abdominal pain cholilithiasis with ?cholecystitis pain resolved at this time MRCP negative for CBD stones LFTs trending down, likely secondary to passed stone Seen by GI, surgery, plan for cholecystectomy tomorrow. NPO at midnight 1/2 blood cultures growing gram + cocci in clusters likely contaminant started on vanco until final sensitivities return Mood disorder Depakote contraindicated due to elevated LFTs. Will hold. Seen by psych, can hold Depakote for now Continue Lexapro Cerebral palsy Continue baclofen, primodone Hyperlipidemia Hold statin for elevated LFTs DVT prophylaxis mechanical devices Code status-full code Attending-Dr. Ortiz Quality Stroke Does the patient have a stroke diagnosis?: No VTE Prior VTE?: No VTE Risk Level:: Medical - moderate - high VTE Device Contraindication: N/A - Device Ordered VTE Drug Contraindication: N/A - Med Ordered
[2021-04-27 15:23] VITALS: BP 137/67; PULSE 65; RESP 18; TEMP 36.2; O2SAT 97
[2021-04-27] MEDS: vancomycin HCL 1,250 MG in 0.9 % Sodium Chloride 250 ML 166.67 MG IV (18:30)
[2021-04-27] MEDS: 0.9 % Sodium Chloride Flush 3 ML SYRINGE IVFLUSH (18:31)
[2021-04-27 20:00] VITALS: BP 124/76; PULSE 78; RESP 18; TEMP 36.8; O2SAT 98
[2021-04-27] MEDS: Primidone 50 MG TABLET PO (20:12)
[2021-04-28] VITALS (12 sets, daily range): BP systolic 112–168; BP diastolic 60–82; PULSE 56–80; RESP 14–18; TEMP 36.1–36.8; O2SAT 92–98
[2021-04-28] MEDS: 0.9 % Sodium Chloride Flush 3 ML SYRINGE IVFLUSH ×3 (00:20→17:24)
[2021-04-28] MEDS: Ibuprofen 400 MG TABLET PO (02:16)
[2021-04-28] MEDS: vancomycin HCL 1,250 MG in 0.9 % Sodium Chloride 250 ML 166.67 MG IV (05:25)
[2021-04-28] MEDS: Omeprazole 20 MG CAPSULE.DR PO (05:25)
[2021-04-28 06:48] LABS: Alanine Aminotransferase 424 U/L (0-40); Albumin Level 3.8 g/dL (3.5-5.0); Alkaline Phosphatase 279 U/L (39-117); Anion Gap 11 (12-20); Aspartate Amino Transferase 81 U/L (5-37); Bilirubin Direct 0.5 mg/dL (0.0-0.5); Bilirubin Total 1.1 mg/dL (0.0-1.0); Blood Urea Nitrogen 14 mg/dL (9-16); Calcium 8.6 mg/dL (8.4-10.2); Carbon Dioxide 25 mmol/L (22-29); Chloride 105 mmol/L (96-108); Creatinine Clr Calc Pharmacy 149.9; Estimated Glomerular Filt Rate > 60; Glucose Random 122 mg/dL (60-115); Sodium 137 mmol/L (135-145); Total Protein 6.2 g/dL (6.5-8.0)
[2021-04-28 08:14] LABS: Hepatitis A Antibody IgM 0.18 Index (0-0.79); ~Hepatitis A Antibody IgM Nonreactive (Nonreactive)
--- NOTE | 2021-04-28 08:45 | MHC.SHP ---
Pre-Procedural Eval Section A Date of Service: 04/28/21 The patient is an INPATIENT: Yes Section B Chief Complaint: Abdominal pain Allergies: Allergies Allergy/AdvReac Type Severity Reaction Status Date / Time Penicillins Allergy Unknown u Verified 04/09/21 18:37 Plan Diagnosis/Plan: Unchanged I have reviewed the history and physical and performed a pertinent physical examination on my patient. No changes have occurred unless specified.
--- NOTE | 2021-04-28 11:25 | P.PNIM_ITS ---
Subjective Subjective Date of Service: 04/28/21 Interval History: seen and examined reports abdominal pain resolved no nausea or vomiting Review of Systems Review of Systems: Yes all other systems are reviewed and are negative (except above) Physical Exam Vital Signs: Vital Signs: Last Vital Signs Temp 98.2 F 04/28/21 07:18 Pulse 72 04/28/21 07:18 Resp 18 04/28/21 07:18 BP 168/73 H 04/28/21 07:18 Pulse Ox 98 04/28/21 07:18 Body Mass Index 33.4 Const: Nutritional Appearance: well nourished Orientation/consciousness: patient oriented x3 HENMT: Head: Yes normocephalic and Yes atraumatic Eyes: Sclerae: sclerae normal Chest: Chest palpation & inspection: normal inspection of the chest Resp: Effort & Inspection: normal respiratory effort and no respiratory distress Cardio: Rate: regular rate Rhythm: regular rhythm GI: Other: Abdomen soft, nontender, nondistended, positive bowel sounds Palpation (GI): Soft to palpation and nontender Neuro: General: patient oriented x3 Cranial nerves: Yes CN's II-XII intact bilaterally and Yes Bilaterally intact EOM present Extrem: Other: left leg brace, left arm contracture Objective Data Active Medications Baclofen (Baclofen 10 Mg Tablet) 10 mg PO BID [facility] Last Admin: 04/28/21 09:11 Dose: Not Given Documented by: SHILA Non-Admin Reason: NPO Docusate Sodium (Docusate Sodium 100 Mg Capsule) 100 mg PO DAILY PRN PRN Reason: Constipation Escitalopram Oxalate (Escitalopram Oxalate 20 Mg Tablet) 20 mg PO DAILY [facility] Last Admin: 04/28/21 09:11 Dose: Not Given Documented by: SHILA Non-Admin Reason: NPO Escitalopram Oxalate (Escitalopram Oxalate 10 Mg Tablet) 10 mg PO DAILY [facility] Last Admin: 04/28/21 09:11 Dose: Not Given Documented by: SHILA Non-Admin Reason: NPO Vancomycin HCl 1,250 mg/ (Sodium Chloride) 250 mls @ 166.667 mls/hr IV Q12H [facility] Last Infusion: 04/28/21 07:18 Dose: 0 mls/hr Documented by: SHILA Melatonin (Melatonin 3 Mg Tablet) 3 mg PO BEDTIME PRN PRN Reason: Insomnia Morphine Sulfate (Morphine Sulfate 2 Mg/Ml Cartridge) 2 mg IVPUSH Q4H PRN; Protocol PRN Reason: Pain, Severe (Pain Scale 7-10) Omeprazole (Omeprazole 20 Mg Capsule.Dr) 20 mg PO DAILY@0630 [facility] Last Admin: 04/28/21 05:25 Dose: 20 mg Documented by: BRIGETTE Ondansetron HCl (Ondansetron Hcl 4 Mg/2 Ml Vial) 4 mg IVPUSH Q8H PRN PRN Reason: Nausea and Vomiting Pharmacy Consult (Consult Rx Perform Med Rec) 1 each MISCELLANE ONCE PRN PRN Reason: Consult order Pharmacy Consult (Consult Rx Vancomycin Dosing) 1 each MISCELLANE DAILY PRN PRN Reason: Consult order Primidone (Primidone 50 Mg Tablet) 100 mg PO DAILY [facility] Last Admin: 04/28/21 09:12 Dose: Not Given Documented by: SHILA Non-Admin Reason: NPO Primidone (Primidone 50 Mg Tablet) 50 mg PO BEDTIME [facility] Last Admin: 04/27/21 20:12 Dose: 50 mg Documented by: MERLE Propranolol HCl (Propranolol Hcl La 60 Mg Cap.Sa.24h) 120 mg PO DAILY [facility]; Protocol Last Admin: 04/28/21 09:12 Dose: Not Given Documented by: SHILA Non-Admin Reason: NPO Sodium Chloride (0.9 % Sodium Chloride Flush 3 Ml Syringe) 3 ml IVFLUSH QSHIFT [facility] Last Admin: 04/28/21 10:13 Dose: 3 ml Documented by: SHILA Labs CBC & Chem 7: 04/27/21 05:28 04/28/21 05:49 Labs: Laboratory Results - last 24 hr 04/28/21 05:49 Anion Gap 11 L Estim Creat Clear Calc 149.9 Estimated GFR > 60 Random Glucose 122 H Calcium 8.6 Total Bilirubin 1.1 H Direct Bilirubin 0.5 AST 81 H ALT 424 H Alkaline Phosphatase 279 H Total Protein 6.2 L Albumin 3.8 Microbiology Microbiology Results: Microbiology 04/25/21 20:51 Blood Culture - Preliminary Blood - Venous No growth after 48 hours. 04/25/21 20:51 Blood Culture - Preliminary Blood - Venous Prelim: GPC Gram Stain only Assessment and Plan (1) Cholecystitis, acute with cholelithiasis: Status: Acute Assessment and Plan: This is a 51-year-old male with a history of cerebral palsy, bipolar disorder, hyperlipidemia who presents to the emergency department with one-week history of abdominal pain found to have elevated LFTs Abdominal pain cholilithiasis with probable cholecystitis pain resolved at this time MRCP negative for CBD stones LFTs trending down, likely secondary to passed stone CCK today 1/2 blood cultures growing gram + cocci in clusters d/w micro verbally reported as coag neg staph will d/c vancomcyin Mood disorder Depakote contraindicated due to elevated LFTs. Will hold. Seen by psych, can hold Depakote for now -- to rediscuss with psych about restarting Continue Lexapro Cerebral palsy Continue baclofen, primodone Hyperlipidemia Hold statin for elevated LFTs DVT prophylaxis mechanical devices Code status-full code Quality Stroke Does the patient have a stroke diagnosis?: No VTE Prior VTE?: No VTE Risk Level:: Medical - moderate - high VTE Device Contraindication: N/A - Device Ordered VTE Drug Contraindication: N/A - Med Ordered
[2021-04-28] MEDS: metroNIDAZOLE/NS 500 MG/100 ML PIGGYBACK 100 MG IV (12:55)
--- NOTE | 2021-04-28 13:15 | P.CONAN_ITS ---
[facility] Active Problems Active Problems: All Active Problems (Updated 04/27/21 @ 08:14 by Cory renner MD) Cholecystitis, acute with cholelithiasis (Acute) Unspecified mood [affective] disorder (Acute) Abnormal LFTs (Acute) Abdominal pain (Acute) Hepatitis (Acute) Past Medical History Medical History Bipolar 1 disorder Cerebral palsy Chronic GERD COVID-19 High cholesterol Functional capacity: uses cane/walker Family History Family History Other Diabetes Family history of problems with anesthesia: No Surgical History History of Problems with Anesthesia: No Social History Social History Alcohol intake: never Patient Tobacco Use Status: Tobacco use Unknown Use of substances other than those prescribed or required for medical reasons: No Have you been hit, kicked, punched, or otherwise hurt by someone within the past year? If so, by whom?: No Are you DNR?: No Advance Directives: No Advance Directives Information Provided: Yes Recently lost weight without trying: No Nutrition Risks: No Nutritional Risk service: No Current occupational status: disabled Meds Allergies Allergy/AdvReac Type Severity Reaction Status Date / Time Penicillins Allergy Unknown u Verified 04/09/21 18:37 Active Medications: Current Medications Baclofen (Baclofen 10 Mg Tablet) 10 mg PO BID [facility] Last Admin: 04/28/21 09:11 Dose: Not Given Documented by: Docusate Sodium (Docusate Sodium 100 Mg Capsule) 100 mg PO DAILY PRN PRN Reason: Constipation Escitalopram Oxalate (Escitalopram Oxalate 20 Mg Tablet) 20 mg PO DAILY [facility] Last Admin: 04/28/21 09:11 Dose: Not Given Documented by: Escitalopram Oxalate (Escitalopram Oxalate 10 Mg Tablet) 10 mg PO DAILY [facility] Last Admin: 04/28/21 09:11 Dose: Not Given Documented by: Metronidazole (Flagyl) 500 mg in 100 mls @ 100 mls/hr IV PREOP ONE Stop: 04/28/21 13:26 Last Admin: 04/28/21 12:55 Dose: 100 mls/hr Documented by: Melatonin (Melatonin 3 Mg Tablet) 3 mg PO BEDTIME PRN PRN Reason: Insomnia Morphine Sulfate (Morphine Sulfate 2 Mg/Ml Cartridge) 2 mg IVPUSH Q4H PRN; Protocol PRN Reason: Pain, Severe (Pain Scale 7-10) Omeprazole (Omeprazole 20 Mg Capsule.Dr) 20 mg PO DAILY@0630 [facility] Last Admin: 04/28/21 05:25 Dose: 20 mg Documented by: Ondansetron HCl (Ondansetron Hcl 4 Mg/2 Ml Vial) 4 mg IVPUSH Q8H PRN PRN Reason: Nausea and Vomiting Pharmacy Consult (Consult Rx Perform Med Rec) 1 each MISCELLANE ONCE PRN PRN Reason: Consult order Pharmacy Consult (Consult Rx Vancomycin Dosing) 1 each MISCELLANE DAILY PRN PRN Reason: Consult order Primidone (Primidone 50 Mg Tablet) 100 mg PO DAILY [facility] Last Admin: 04/28/21 09:12 Dose: Not Given Documented by: Primidone (Primidone 50 Mg Tablet) 50 mg PO BEDTIME [facility] Last Admin: 04/27/21 20:12 Dose: 50 mg Documented by: Propranolol HCl (Propranolol Hcl La 60 Mg Cap.Sa.24h) 120 mg PO DAILY [facility]; Protocol Last Admin: 04/28/21 09:12 Dose: Not Given Documented by: Sodium Chloride (0.9 % Sodium Chloride Flush 3 Ml Syringe) [facility] Last Admin: 04/28/21 10:13 Dose: 3 ml Documented by: Home Medications Medication Instructions Recorded Confirmed Last Taken Type aspirin 81 mg tablet,delayed 1 tab PO DAILY 09/22/20 04/26/21 1 Day Ago History release ~04/25/21 atorvastatin 10 mg tablet 1 tab PO DAILY 09/22/20 04/26/21 1 Day Ago History ~04/25/21 baclofen 10 mg tablet 1 tab PO BID 09/22/20 04/26/21 1 Day Ago History ~04/25/21 divalproex 500 mg tablet,extended 2 tab PO BEDTIME 09/22/20 04/26/21 2 Days Ago History release 24 hr (Depakote ER) ~04/24/21 escitalopram oxalate 20 mg tablet 1 tab PO DAILY 09/22/20 04/26/21 1 Day Ago History (Lexapro) ~04/25/21 omeprazole 20 mg capsule,delayed 1 cap PO DAILY 09/22/20 04/26/21 1 Day Ago History release ~04/25/21 primidone 50 mg tablet 50 mg PO QPM 09/22/20 04/26/21 1 Day Ago History ~04/25/21 primidone 50 mg tablet 100 mg PO QAM 09/22/20 04/26/21 1 Day Ago History ~04/25/21 propranolol 120 mg capsule,24 1 cap PO DAILY 09/22/20 04/26/21 1 Day Ago History hr,extended release ~04/25/21 escitalopram oxalate 10 mg tablet 1 tab PO DAILY 04/26/21 04/26/21 Unknown History melatonin 3 mg tablet 1 tab PO BEDTIME PRN 04/26/21 04/26/21 Unknown History Exam Exam Date and Time: April 28, 2021 131 Height,Weight and Vital Signs: Height 5 ft 8 in Weight 99.79 kg Last Vital Signs Temp 97 F 04/28/21 12:44 Pulse 56 04/28/21 12:44 Resp 18 04/28/21 12:44 BP 147/75 H 04/28/21 12:44 Pulse Ox 96 04/28/21 12:44 Pertinent Lab Results Pertinent Lab Results: Laboratory Tests 04/25/21 04/25/21 04/25/21 20:51 20:51 20:51 WBC 8.6 RBC 4.87 Hgb 14.4 Hct 42.9 MCV 88.1 MCH 29.6 MCHC 33.6 RDW 14.3 Plt Count 273 MPV 10.1 Immature Gran % (Auto) 0.6 H Neut % (Auto) 79.1 H Lymph % (Auto) 14.0 L [place] % (Auto) 5.4 Eos % (Auto) 0.5 Baso % (Auto) 0.4 Lymph # (Auto) 1.2 [place] # (Auto) 0.5 Eos # (Auto) 0.0 Baso # (Auto) 0.0 Abs Immat Gran (auto) 0.05 H Absolute Neuts (auto) 6.8 Absolute Nucleated RBC 0.000 Nucleated RBC % (auto) 0.0 PT INR APTT Sodium 141 Potassium 4.9 Chloride 104 Carbon Dioxide 25 Anion Gap 17 BUN 11 Creatinine 0.71 Estim Creat Clear Calc 139.3 Estimated GFR > 60 Random Glucose 137 H D Lactic Acid Calcium 9.9 D Ferritin 1449 H Total Bilirubin 4.5 H Direct Bilirubin 2.9 H AST 497 H ALT 1004 H Alkaline Phosphatase 405 H D Lactate Dehydrogenase 748 H Troponin I High Sens C-Reactive Protein 0.48 B-Natriuretic Peptide Total Protein 7.5 Albumin 4.5 Lipase 15 Procalcitonin Specimen Comment Salicylates < 5.0 L Acetaminophen < 1 Ethyl Alcohol Coronavirus (PCR) NEGATIVE Hepatitis A IgM Ab Hep Bs Antigen Hep Bs Antibody Hep B Core Total Ab Hepatitis C Ab (EIA) Influenza Type A (PCR) NEGATIVE Influenza Type B (PCR) NEGATIVE RSV RNA Qual (PCR) NEGATIVE 04/25/21 04/25/21 04/25/21 20:51 20:51 20:51 WBC RBC Hgb Hct MCV MCH MCHC RDW Plt Count MPV Immature Gran % (Auto) Neut % (Auto) Lymph % (Auto) [place] % (Auto) Eos % (Auto) Baso % (Auto) Lymph # (Auto) [place] # (Auto) Eos # (Auto) Baso # (Auto) Abs Immat Gran (auto) Absolute Neuts (auto) Absolute Nucleated RBC Nucleated RBC % (auto) PT INR APTT Sodium Potassium Chloride Carbon Dioxide Anion Gap BUN Creatinine Estim Creat Clear Calc Estimated GFR Random Glucose Lactic Acid 1.5 Calcium Ferritin Total Bilirubin Direct Bilirubin AST ALT Alkaline Phosphatase Lactate Dehydrogenase Troponin I High Sens < 3.5 C-Reactive Protein B-Natriuretic Peptide < 10 Total Protein Albumin Lipase Procalcitonin 0.17 Specimen Comment Salicylates Acetaminophen Ethyl Alcohol Coronavirus (PCR) Hepatitis A IgM Ab Hep Bs Antigen Hep Bs Antibody Hep B Core Total Ab Hepatitis C Ab (EIA) Influenza Type A (PCR) Influenza Type B (PCR) RSV RNA Qual (PCR) 04/25/21 04/25/21 04/26/21 20:51 23:05 05:33 WBC RBC Hgb Hct MCV MCH MCHC RDW Plt Count MPV Immature Gran % (Auto) Neut % (Auto) Lymph % (Auto) [place] % (Auto) Eos % (Auto) Baso % (Auto) Lymph # (Auto) [place] # (Auto) Eos # (Auto) Baso # (Auto) Abs Immat Gran (auto) Absolute Neuts (auto) Absolute Nucleated RBC Nucleated RBC % (auto) PT 11.0 INR 1.0 APTT 33.0 Sodium Potassium Chloride Carbon Dioxide Anion Gap BUN Creatinine Estim Creat Clear Calc Estimated GFR Random Glucose Lactic Acid Calcium Ferritin Total Bilirubin Direct Bilirubin AST ALT Alkaline Phosphatase Lactate Dehydrogenase Troponin I High Sens C-Reactive Protein B-Natriuretic Peptide Total Protein Albumin Lipase Procalcitonin Specimen Comment DELAY Salicylates Acetaminophen Ethyl Alcohol < 10 Coronavirus (PCR) Hepatitis A IgM Ab Hep Bs Antigen Hep Bs Antibody Hep B Core Total Ab Hepatitis C Ab (EIA) Influenza Type A (PCR) Influenza Type B (PCR) RSV RNA Qual (PCR) 04/26/21 04/26/21 04/27/21 09:50 09:50 05:28 WBC 4.9 RBC 4.44 L Hgb 12.8 L Hct 38.3 L MCV 86.3 MCH 28.8 MCHC 33.4 RDW 14.0 Plt Count 229 MPV 10.1 Immature Gran % (Auto) Neut % (Auto) Lymph % (Auto) [place] % (Auto) Eos % (Auto) Baso % (Auto) Lymph # (Auto) [place] # (Auto) Eos # (Auto) Baso # (Auto) Abs Immat Gran (auto) Absolute Neuts (auto) Absolute Nucleated RBC 0.000 Nucleated RBC % (auto) 0.0 PT INR APTT Sodium Potassium Chloride Carbon Dioxide Anion Gap BUN Creatinine Estim Creat Clear Calc Estimated GFR Random Glucose Lactic Acid Calcium Ferritin Total Bilirubin Direct Bilirubin AST ALT Alkaline Phosphatase Lactate Dehydrogenase Troponin I High Sens C-Reactive Protein B-Natriuretic Peptide Total Protein Albumin Lipase Procalcitonin Specimen Comment Salicylates Acetaminophen Ethyl Alcohol Coronavirus (PCR) Hepatitis A IgM Ab Nonreactive Hep Bs Antigen Negative Hep Bs Antibody NONREACTIVE Hep B Core Total Ab Nonreactive Hepatitis C Ab (EIA) Nonreactive Influenza Type A (PCR) Influenza Type B (PCR) RSV RNA Qual (PCR) 04/27/21 04/28/21 05:28 05:49 WBC RBC Hgb Hct MCV MCH MCHC RDW Plt Count MPV Immature Gran % (Auto) Neut % (Auto) Lymph % (Auto) [place] % (Auto) Eos % (Auto) Baso % (Auto) Lymph # (Auto) [place] # (Auto) Eos # (Auto) Baso # (Auto) Abs Immat Gran (auto) Absolute Neuts (auto) Absolute Nucleated RBC Nucleated RBC % (auto) PT INR APTT Sodium 138 137 Potassium 4.0 4.0 Chloride 104 105 Carbon Dioxide 24 25 Anion Gap 14 11 L BUN 10 14 Creatinine 0.65 0.66 Estim Creat Clear Calc 152.2 149.9 Estimated GFR > 60 > 60 Random Glucose 103 122 H Lactic Acid Calcium 8.9 D 8.6 Ferritin Total Bilirubin 1.5 H 1.1 H Direct Bilirubin 0.7 H 0.5 AST 158 H 81 H ALT 576 H 424 H Alkaline Phosphatase 329 H 279 H Lactate Dehydrogenase Troponin I High Sens C-Reactive Protein B-Natriuretic Peptide Total Protein 6.0 L 6.2 L Albumin 3.7 3.8 Lipase Procalcitonin Specimen Comment Salicylates Acetaminophen Ethyl Alcohol Coronavirus (PCR) Hepatitis A IgM Ab Hep Bs Antigen Hep Bs Antibody Hep B Core Total Ab Hepatitis C Ab (EIA) Influenza Type A (PCR) Influenza Type B (PCR) RSV RNA Qual (PCR) Airway Mallampati Class: II TM Dist: >3cm Neck ROM: Full Loose/Missing/Broken Teeth: Yes Heart: RRR Lungs: CTA Assessment and Plan Final Anesthetic Review Family History of Problems with Anesthesia: No History of Problems with Anesthesia: No
--- NOTE | 2021-04-28 13:55 | W.PM.IDCN ---
History of Present Illness Data of Consult Service Date: 04/28/21 Requesting physician: Madison Colin Primary Care Provider: DO VIRIDIANA Castaneda Reason for consult: abdominal pain He presents with one week diffuse generalized abdominal discomfort 02/18 He has no fever or chills or leukocytosis LFTs are elevated MR no CBD stone Review of Systems Review of Systems: Yes all other systems are reviewed and are negative [facility] Past Medical History Medical History Bipolar 1 disorder Cerebral palsy Chronic GERD COVID-19 High cholesterol Functional capacity: uses cane/walker Family History Family History Other Diabetes Family history: reviewed and not pertinent Social History Social History Alcohol intake: never Patient Tobacco Use Status: Tobacco use Unknown service: No Current occupational status: disabled Meds Allergies Allergy/AdvReac Type Severity Reaction Status Date / Time Penicillins Allergy Unknown u Verified 04/09/21 18:37 Active Medications: Current Medications Albuterol Sulfate (Albuterol Sulfate (0.083%) 2.5 Mg/3 Ml Vial.Neb) 2.5 mg INHALE ONCE PRN PRN Reason: Wheezing Baclofen (Baclofen 10 Mg Tablet) 10 mg PO BID [facility] Last Admin: 04/28/21 09:11 Dose: Not Given Documented by: Docusate Sodium (Docusate Sodium 100 Mg Capsule) 100 mg PO DAILY PRN PRN Reason: Constipation Escitalopram Oxalate (Escitalopram Oxalate 20 Mg Tablet) 20 mg PO DAILY [facility] Last Admin: 04/28/21 09:11 Dose: Not Given Documented by: Escitalopram Oxalate (Escitalopram Oxalate 10 Mg Tablet) 10 mg PO DAILY [facility] Last Admin: 04/28/21 09:11 Dose: Not Given Documented by: Fentanyl (Fentanyl Citrate/Pf 100 Mcg/2 Ml Vial) 50 mcg IVPUSH Q5M PRN; Protocol PRN Reason: Pain, Severe (Pain Scale 7-10) Fentanyl (Fentanyl Citrate/Pf 100 Mcg/2 Ml Vial) 25 mcg IVPUSH Q5M PRN; Protocol PRN Reason: Pain, Moderate (Pain Scale 4-6 Hydromorphone HCl (Hydromorphone Hcl 0.5 Mg/0.5 Ml Syringe) 0.5 mg IVPUSH Q5M PRN; Protocol PRN Reason: Pain, Severe (Pain Scale 7-10) Hydromorphone HCl (Hydromorphone Hcl 0.5 Mg/0.5 Ml Syringe) 0.25 mg IVPUSH Q5M PRN; Protocol PRN Reason: Pain, Severe (Pain Scale 7-10) Melatonin (Melatonin 3 Mg Tablet) 3 mg PO BEDTIME PRN PRN Reason: Insomnia Morphine Sulfate (Morphine Sulfate 2 Mg/Ml Cartridge) 2 mg IVPUSH Q4H PRN; Protocol PRN Reason: Pain, Severe (Pain Scale 7-10) Omeprazole (Omeprazole 20 Mg Capsule.Dr) 20 mg PO DAILY@0630 [facility] Last Admin: 04/28/21 05:25 Dose: 20 mg Documented by: Ondansetron HCl (Ondansetron Hcl 4 Mg/2 Ml Vial) 4 mg IVPUSH Q8H PRN PRN Reason: Nausea and Vomiting Ondansetron HCl (Ondansetron Hcl 4 Mg/2 Ml Vial) 4 mg IVPUSH ONCE PRN PRN Reason: Nausea and Vomiting Oxycodone HCl (Oxycodone Hcl Immed Release 5 Mg Tablet) 10 mg PO ONCE PRN PRN Reason: Pain, Severe (Pain Scale 7-10) Oxycodone HCl (Oxycodone Hcl Immed Release 5 Mg Tablet) 5 mg PO ONCE PRN PRN Reason: Pain, Severe (Pain Scale 7-10) Pharmacy Consult (Consult Rx Perform Med Rec) 1 each MISCELLANE ONCE PRN PRN Reason: Consult order Pharmacy Consult (Consult Rx Vancomycin Dosing) 1 each MISCELLANE DAILY PRN PRN Reason: Consult order Primidone (Primidone 50 Mg Tablet) 100 mg PO DAILY [facility] Last Admin: 04/28/21 09:12 Dose: Not Given Documented by: Primidone (Primidone 50 Mg Tablet) 50 mg PO BEDTIME [facility] Last Admin: 04/27/21 20:12 Dose: 50 mg Documented by: Propranolol HCl (Propranolol Hcl La 60 Mg Cap.Sa.24h) 120 mg PO DAILY [facility]; Protocol Last Admin: 04/28/21 09:12 Dose: Not Given Documented by: Sodium Chloride (0.9 % Sodium Chloride Flush 3 Ml Syringe) 3 ml IVFLUSH QSHIFT [facility] Last Admin: 04/28/21 10:13 Dose: 3 ml Documented by: Home Medications Medication Instructions Recorded Confirmed Last Taken Type aspirin 81 mg tablet,delayed 1 tab PO DAILY 09/22/20 04/26/21 1 Day Ago History release ~04/25/21 atorvastatin 10 mg tablet 1 tab PO DAILY 09/22/20 04/26/21 1 Day Ago History ~04/25/21 baclofen 10 mg tablet 1 tab PO BID 09/22/20 04/26/21 1 Day Ago History ~04/25/21 divalproex 500 mg tablet,extended 2 tab PO BEDTIME 09/22/20 04/26/21 2 Days Ago History release 24 hr (Depakote ER) ~04/24/21 escitalopram oxalate 20 mg tablet 1 tab PO DAILY 09/22/20 04/26/21 1 Day Ago History (Lexapro) ~04/25/21 omeprazole 20 mg capsule,delayed 1 cap PO DAILY 09/22/20 04/26/21 1 Day Ago History release ~04/25/21 primidone 50 mg tablet 50 mg PO QPM 09/22/20 04/26/21 1 Day Ago History ~04/25/21 primidone 50 mg tablet 100 mg PO QAM 09/22/20 04/26/21 1 Day Ago History ~04/25/21 propranolol 120 mg capsule,24 1 cap PO DAILY 09/22/20 04/26/21 1 Day Ago History hr,extended release ~04/25/21 escitalopram oxalate 10 mg tablet 1 tab PO DAILY 04/26/21 04/26/21 Unknown History melatonin 3 mg tablet 1 tab PO BEDTIME PRN 04/26/21 04/26/21 Unknown History Physical Exam Vital Signs: Vital Signs: Last Vital Signs Temp 97 F 04/28/21 12:44 Pulse 56 04/28/21 12:44 Resp 18 04/28/21 12:44 BP 147/75 H 04/28/21 12:44 Pulse Ox 96 04/28/21 12:44 Body Mass Index 33.4 Const: General: cooperative HENMT: Head: Yes normal to inspection Mouth: Normal oral and palatal mucosa present Eyes: General: appearance normal, both eyes and all related structures Resp: Effort & Inspection: normal respiratory effort Cardio: Rate: regular rate Rhythm: regular rhythm GI: Palpation (GI): Soft to palpation and nontender Skin: General skin exam: no rashes or lesions noted Results Labs CBC & Chem 7: 04/27/21 05:28 04/30/21 05:35 Labs: BMP 04/28/21 05:49 Sodium 137 Potassium 4.0 Chloride 105 Carbon Dioxide 25 BUN 14 Creatinine 0.66 Calcium 8.6 Liver Function 04/28/21 Range/Units 05:49 Total Bilirubin 1.1 H (0.0-1.0) mg/dL Direct Bilirubin 0.5 (0.0-0.5) mg/dL AST 81 H (5-37) U/L ALT 424 H (0-40) U/L Alkaline Phosphatase 279 H (39-117) U/L Albumin 3.8 (3.5-5.0) g/dL Microbiology Microbiology Results: Microbiology 04/25/21 20:51 Blood - Venous Blood Culture - Final Coag negative Staphylococcus 04/25/21 20:51 Blood - Venous Blood Culture - Preliminary No growth after 48 hours. Assessment and Plan (1) Cholecystitis, acute with cholelithiasis: Status: Resolved (2) Abnormal LFTs: Status: Deleted The cause may be gallstones but no acute cholangitis and no fever or elevated WBC Less likely hepatitis C (3) Abdominal pain: Qualifiers: Abdominal location: right upper quadrant Qualified Code(s): R10.11 - Right upper quadrant pain Status: Resolved Stop Vancomycin as coagulase negative contaminant No further antibiotics Check Hepatitis C
--- NOTE | 2021-04-28 14:51 | MHC.CM.PN ---
PATIENT REPORTS THAT HE IS ELIGIBLE FOR 13.5 HOURS OF DONATION SPECIALIST SERVICES AT THIS TIME. HE DOES NOT HAVE ANY DONATION SPECIALIST AVAILABLE YET; HOWEVER.
--- NOTE | 2021-04-28 14:56 | MHC.CM.PN ---
PLAN IS CHOLY. TODAY AND DC TO HOME TOMORROW.
--- NOTE | 2021-04-28 15:51 | W.PM.OPN ---
Operative Note Operative Note Date of Service: 04/28/21 Narrative: Preoperative diagnosis: Acute and chronic cholecystitis due to cholelithiasis Postoperative diagnosis: Same Procedure: Laparoscopic cholecystectomy Surgeon: Cory Hall MD Grinder Set Up Operator Jig: Arlin Bazzi PA-C Anesthesia: General endotracheal Indications for procedure: 51-year-old male patient presenting with complaints of abdominal pain in the right upper quadrant found to have elevated liver function test. He was made NPO and the liver functions were trended. Over time the levels decreased. He was also on Depakote which was held. Patient was found to have a contracted gallbladder with multiple gallstones by ultrasound. Operative findings: Shrunken contracted gallbladder with dense adhesions and scarred, firm wall. Multiple small gallstones were noted within the gallbladder. Specimen: Gallbladder Estimated blood loss: 15 mL Complications: None Procedure details: Patient was brought to the OR placed in a supine position. After administering general anesthesia the patient's abdomen was prepped with ChloraPrep and draped in a sterile fashion. A surgical time-out was called the consent confirmed. Patient received preoperative antibiotics and Venodyne boots were placed. Local anesthesia consisting of 0.5% Sensorcaine plain was infiltrated in a periumbilical region. A 5 mm incision was then made with scalpel. The Veress needle was then inserted while elevating the abdominal cavity with towel clips. After a positive drop test the abdomen was insufflated to a pressure of 15 mm of mercury. The Veress needle was removed and a 5 mm trocar inserted under direct vision. The camera was then inserted in the abdomen explored. A 12 mm trocar was then placed in the epigastric region and 2 5 mm trocars placed in the right upper quadrant. The patient was then placed in reverse Trendelenburg position rotated to the left. Gallbladder was grasped at the fundus and retracted cephalad. Dense adhesions were then taken down slowly off the inferior surface of the gallbladder wall. The rain noted to be extensively scarred consistent with chronic cholecystitis. The infundibulum was then grasped and retracted away from the liver bed. Gentle dissection was then used to dissect the cystic duct. A cystic artery and node of [place] was noted slightly posterior to this. The cystic artery was gently dissected as well. After obtaining a critical view the cystic duct was doubly clipped and divided. The cystic artery was then doubly clipped and divided. Gallbladder was then dissected off the liver bed using electrocautery and with the hook dissector. The gallbladder was then placed in Endo-Catch bag and brought out through the epigastric incision. Liver bed was then irrigated with saline solution. No bleeding or bile leak could be identified. CO2 was then evacuated and all trocars removed. Fascia was closed at the epigastric incision using a [id number] Polysorb suture. Skin was closed in all incisions using a subcuticular 4-0 Polysorb suture. Steri-Strips 2 x 2 gauze and Tegaderm then applied. The patient tolerated the procedure well. Sponge, instrument, needle counts reported as correct. The patient was transferred to PACU in stable condition.
[2021-04-28] MEDS: Dextrose 5 % and Lactated Ring 1,000 ML 125 ML IVCONT (17:23)
[2021-04-28] MEDS: Baclofen 10 MG TABLET PO (20:25)
[2021-04-28] MEDS: Primidone 50 MG TABLET PO (20:25)
[2021-04-29] MEDS: Dextrose 5 % and Lactated Ring 1,000 ML 125 ML IVCONT ×2 (02:54→22:35)
[2021-04-29] MEDS: Omeprazole 20 MG CAPSULE.DR PO (06:18)
[2021-04-29 06:21] LABS: Anion Gap 11 (12-20); Blood Urea Nitrogen 9 mg/dL (9-16); Calcium 8.7 mg/dL (8.4-10.2); Carbon Dioxide 26 mmol/L (22-29); Chloride 106 mmol/L (96-108); Creatinine Clr Calc Pharmacy 143.4; Estimated Glomerular Filt Rate > 60; Glucose Random 147 mg/dL (60-115); Potassium 3.9 mmol/L (3.3-5.1); Sodium 139 mmol/L (135-145)
[2021-04-29 07:37] VITALS: BP 136/63; PULSE 56; RESP 18; TEMP 36; O2SAT 100
[2021-04-29] MEDS: Escitalopram Oxalate 20 MG TABLET PO (10:16)
[2021-04-29] MEDS: 0.9 % Sodium Chloride Flush 3 ML SYRINGE IVFLUSH (10:16)
[2021-04-29] MEDS: Baclofen 10 MG TABLET PO ×2 (10:16→20:49)
[2021-04-29] MEDS: Escitalopram Oxalate 10 MG TABLET PO (10:16)
[2021-04-29] MEDS: Propranolol HCL LA 60 MG CAP.SA.24H 120 MG PO (10:17)
[2021-04-29] MEDS: Primidone 50 MG TABLET 100 MG PO (10:17)
[2021-04-29 10:21] VITALS: PULSE 65; O2SAT 96
--- NOTE | 2021-04-29 10:33 | P.PNGS_ITS ---
Subjective Subjective Date of Service: 04/29/21 Interval history: Says he is comfortable Tolerating diet well No events reported overnight Physical Exam Vital Signs: Vital Signs: Last Vital Signs Temp 96.8 F 04/29/21 07:37 Pulse 65 04/29/21 10:21 Resp 18 04/29/21 07:37 BP 136/63 04/29/21 07:37 Pulse Ox 96 04/29/21 10:21 Body Mass Index 33.4 Const: Other: Chemistry 04/27/21 04/28/21 04/29/21 05:28 05:49 05:31 Sodium 138 137 139 Potassium 4.0 4.0 3.9 Carbon Dioxide 24 25 26 BUN 10 14 9 Creatinine 0.65 0.66 0.69 Calcium 8.9 D 8.6 8.7 Hematology 04/27/21 05:28 WBC 4.9 Hgb 12.8 L Plt Count 229 General: comfortable and no acute distress Eyes: Eyelids: Yes eyelids normal Resp: Effort & Inspection: normal respiratory effort Cardio: Rate: regular rate GI: Other: Dressings clean and dry Palpation (GI): Soft to palpation, not firm and no guarding Procedures Date of Service Date of Service: 04/29/21 Progress Note: A&P Assessment and plan (1) Cholecystitis, acute with cholelithiasis: Status: Acute Assessment and Plan: Status post lap boubacar Looks good Good pain control Tolerating diet Patient lives alone - discussed with catalytic case operator: Will arrange for appropriate care with patient [facility]; Likely home tomorrow Fall Risk Details Current Medications: Current Medications Acetaminophen (Acetaminophen 325 Mg Tablet) 650 mg PO Q6H PRN PRN Reason: Pain, Mild (Pain Scale 1-3) Baclofen (Baclofen 10 Mg Tablet) 10 mg PO BID [facility] Last Admin: 04/29/21 10:16 Dose: 10 mg Documented by: Docusate Sodium (Docusate Sodium 100 Mg Capsule) 100 mg PO DAILY PRN PRN Reason: Constipation Escitalopram Oxalate (Escitalopram Oxalate 20 Mg Tablet) 20 mg PO DAILY [facility] Last Admin: 04/29/21 10:16 Dose: 20 mg Documented by: Escitalopram Oxalate (Escitalopram Oxalate 10 Mg Tablet) 10 mg PO DAILY [facility] Last Admin: 04/29/21 10:16 Dose: 10 mg Documented by: Dextrose/Lactated Ringer's (D5lr) 1,000 mls @ 125 mls/hr IVCONT .Q8H [facility] Last Admin: 04/29/21 10:21 Dose: Not Given Documented by: Melatonin (Melatonin 3 Mg Tablet) 3 mg PO BEDTIME PRN PRN Reason: Insomnia Morphine Sulfate (Morphine Sulfate 2 Mg/Ml Cartridge) 4 mg IVPUSH Q3H PRN; Protocol PRN Reason: Pain, Severe (Pain Scale 7-10) Omeprazole (Omeprazole 20 Mg Capsule.Dr) 20 mg PO DAILY@0630 [facility] Last Admin: 04/29/21 06:18 Dose: 20 mg Documented by: Ondansetron HCl (Ondansetron Hcl 4 Mg/2 Ml Vial) 4 mg IVPUSH Q8H PRN PRN Reason: Nausea and Vomiting Oxycodone HCl (Oxycodone Hcl Immed Release 5 Mg Tablet) 5 mg PO Q4H PRN PRN Reason: Pain, Moderate (Pain Scale 4-6 Pharmacy Consult (Consult Rx Perform Med Rec) 1 each MISCELLANE ONCE PRN PRN Reason: Consult order Pharmacy Consult (Consult Rx Vancomycin Dosing) 1 each MISCELLANE DAILY PRN PRN Reason: Consult order Primidone (Primidone 50 Mg Tablet) 100 mg PO DAILY [facility] Last Admin: 04/29/21 10:17 Dose: 100 mg Documented by: Primidone (Primidone 50 Mg Tablet) 50 mg PO BEDTIME [facility] Last Admin: 04/28/21 20:25 Dose: 50 mg Documented by: Propranolol HCl (Propranolol Hcl La 60 Mg Cap.Sa.24h) 120 mg PO DAILY [facility]; Protocol Last Admin: 04/29/21 10:17 Dose: 120 mg Documented by: Sodium Chloride (0.9 % Sodium Chloride Flush 3 Ml Syringe) 3 ml IVFLUSH QSHIFT [facility] Last Admin: 04/29/21 10:16 Dose: 3 ml Documented by: Time Spent With Patient Time: Total time spent is greater than 50% in coordination of care (as documented) at patient's floor/unit and/or counseling patient: Time with patient: 15 - 24 minutes Quality Stroke Does the patient have a stroke diagnosis?: No VTE Prior VTE?: No VTE Risk Level:: Medical - moderate - high VTE Device Contraindication: N/A - Device Ordered VTE Drug Contraindication: N/A - Med Ordered
--- NOTE | 2021-04-29 11:56 | PM.IMPN ---
Progress Note: A&P (1) Cholecystitis, acute with cholelithiasis: Status: Acute (2) Transaminitis: Status: Acute Assessment and Plan: This is a 51-year-old male with a history of cerebral palsy, bipolar disorder, hyperlipidemia who presents to the emergency department with one-week history of abdominal pain found to have elevated LFTs Laparoscopic cholecystectomy. POD #1 pain management General surgery following Coag-negative staph Antibiotics discontinued Mood disorder Depakote contraindicated due to elevated LFTs.? Will hold. Seen by psych, can hold Depakote for now -- to rediscuss with psych about restarting Continue Lexapro Cerebral palsy Continue baclofen, primodone Hyperlipidemia Hold statin for elevated LFTs Disposition. Likely home tomorrow after cleared by surgery. DVT prophylaxis mechanical devices Code status-full code Attending Dr. Banegas Subjective Subjective Date of Service: 04/29/21 Review of Systems Follow-up lap choly Doing well, very minimal pain Sitting up in a chair Good appetite Denies chest pain, nausea, vomiting, diarrhea, abdominal pain, shortness of breath Physical Exam Vital Signs: Vital Signs: Last Vital Signs Temp 96.8 F 04/29/21 07:37 Pulse 65 04/29/21 10:21 Resp 18 04/29/21 07:37 BP 136/63 04/29/21 07:37 Pulse Ox 96 04/29/21 10:21 Body Mass Index 33.4 Appearing in no acute distress lung sounds are clear to auscultation heart regular rate rhythm, clear S1, S2 positive bowel sounds, abdomen is soft, nontender neuro patient is alert x3, no focal deficits Objective Data Current Medications Acetaminophen (Acetaminophen 325 Mg Tablet) 650 mg PO Q6H PRN PRN Reason: Pain, Mild (Pain Scale 1-3) Baclofen (Baclofen 10 Mg Tablet) 10 mg PO BID [facility] Last Admin: 04/29/21 10:16 Dose: 10 mg Documented by: Docusate Sodium (Docusate Sodium 100 Mg Capsule) 100 mg PO DAILY PRN PRN Reason: Constipation Escitalopram Oxalate (Escitalopram Oxalate 20 Mg Tablet) 20 mg PO DAILY [facility] Last Admin: 04/29/21 10:16 Dose: 20 mg Documented by: Escitalopram Oxalate (Escitalopram Oxalate 10 Mg Tablet) 10 mg PO DAILY [facility] Last Admin: 04/29/21 10:16 Dose: 10 mg Documented by: Dextrose/Lactated Ringer's (D5lr) 1,000 mls @ 125 mls/hr IVCONT .Q8H [facility] Last Infusion: 04/29/21 10:56 Dose: 125 mls/hr Documented by: Melatonin (Melatonin 3 Mg Tablet) 3 mg PO BEDTIME PRN PRN Reason: Insomnia Morphine Sulfate (Morphine Sulfate 2 Mg/Ml Cartridge) 4 mg IVPUSH Q3H PRN; Protocol PRN Reason: Pain, Severe (Pain Scale 7-10) Omeprazole (Omeprazole 20 Mg Capsule.Dr) 20 mg PO DAILY@0630 [facility] Last Admin: 04/29/21 06:18 Dose: 20 mg Documented by: Ondansetron HCl (Ondansetron Hcl 4 Mg/2 Ml Vial) 4 mg IVPUSH Q8H PRN PRN Reason: Nausea and Vomiting Oxycodone HCl (Oxycodone Hcl Immed Release 5 Mg Tablet) 5 mg PO Q4H PRN PRN Reason: Pain, Moderate (Pain Scale 4-6 Pharmacy Consult (Consult Rx Perform Med Rec) 1 each MISCELLANE ONCE PRN PRN Reason: Consult order Pharmacy Consult (Consult Rx Vancomycin Dosing) 1 each MISCELLANE DAILY PRN PRN Reason: Consult order Primidone (Primidone 50 Mg Tablet) 100 mg PO DAILY [facility] Last Admin: 04/29/21 10:17 Dose: 100 mg Documented by: Primidone (Primidone 50 Mg Tablet) 50 mg PO BEDTIME [facility] Last Admin: 04/28/21 20:25 Dose: 50 mg Documented by: Propranolol HCl (Propranolol Hcl La 60 Mg Cap.Sa.24h) 120 mg PO DAILY [facility]; Protocol Last Admin: 04/29/21 10:17 Dose: 120 mg Documented by: Sodium Chloride (0.9 % Sodium Chloride Flush 3 Ml Syringe) 3 ml IVFLUSH QSHIFT [facility] Last Admin: 04/29/21 10:16 Dose: 3 ml Documented by: Labs CBC & Chem 7: 04/27/21 05:28 04/29/21 05:31 Labs: Laboratory Results - last 24 hr 04/29/21 05:31 Anion Gap 11 L Estim Creat Clear Calc 143.4 Estimated GFR > 60 Random Glucose 147 H Calcium 8.7 Microbiology Microbiology Results: Microbiology 04/25/21 20:51 Blood - Venous Blood Culture - Final Coag negative Staphylococcus 04/25/21 20:51 Blood - Venous Blood Culture - Preliminary No growth after 48 hours. Quality Stroke Does the patient have a stroke diagnosis?: No VTE Prior VTE?: No VTE Risk Level:: Medical - moderate - high VTE Device Contraindication: N/A - Device Ordered VTE Drug Contraindication: N/A - Med Ordered
--- NOTE | 2021-04-29 17:37 | HO.POSTANES ---
Post Anesthesia Evaluation Post Anesthesia Evaluation Vital Signs: Vital Signs Temp Pulse Resp BP Pulse Ox 04/29/21 10:21 65 96 04/29/21 07:37 96.8 F 56 18 136/63 100 Anesthesia: General Endotracheal-GETA Mental Status: Awake Pain Control: Satisfactory Nausea/Vomiting: None Hydration: Adequate Anesthesia-Related Issues: No Anes. Related Issues
[2021-04-29] MEDS: Primidone 50 MG TABLET PO (20:49)
[2021-04-30] MEDS: Omeprazole 20 MG CAPSULE.DR PO (06:21)
[2021-04-30] MEDS: Dextrose 5 % and Lactated Ring 1,000 ML 125 ML IVCONT (06:25)
[2021-04-30 06:40] LABS: Anion Gap 11 (12-20); Blood Urea Nitrogen 9 mg/dL (9-16); Calcium 8.8 mg/dL (8.4-10.2); Carbon Dioxide 27 mmol/L (22-29); Chloride 107 mmol/L (96-108); Creatinine Clr Calc Pharmacy 143.4; Estimated Glomerular Filt Rate > 60; Glucose Random 124 mg/dL (60-115); Sodium 141 mmol/L (135-145)
[2021-04-30] MEDS: Propranolol HCL LA 60 MG CAP.SA.24H 120 MG PO (09:30)
[2021-04-30] MEDS: Escitalopram Oxalate 10 MG TABLET PO (09:31)
[2021-04-30] MEDS: Escitalopram Oxalate 20 MG TABLET PO (09:31)
[2021-04-30] MEDS: Primidone 50 MG TABLET 100 MG PO (09:31)
[2021-04-30] MEDS: Baclofen 10 MG TABLET PO (09:31)
--- NOTE | 2021-04-30 09:49 | PM.PNGS ---
Subjective Subjective Date of Service: 04/30/21 Interval history: feels well good PO intake says he is ready to go home Physical Exam Vital Signs: Vital Signs: Last Vital Signs Temp 96.8 F 04/29/21 07:37 Pulse 65 04/29/21 10:21 Resp 18 04/29/21 07:37 BP 136/63 04/29/21 07:37 Pulse Ox 96 04/29/21 10:21 Body Mass Index 33.4 Chemistry 04/28/21 04/29/21 04/30/21 05:49 05:31 05:35 Sodium 137 139 141 Potassium 4.0 3.9 4.0 Carbon Dioxide 25 26 27 BUN 14 9 9 Creatinine 0.66 0.69 0.69 Calcium 8.6 8.7 8.8 Const: General: comfortable and no acute distress Eyes: Sclerae: sclerae normal Resp: Effort & Inspection: normal respiratory effort Cardio: Rate: regular rate GI: Other: all incisions clean and dry Palpation (GI): Soft to palpation, not firm and no guarding Procedures Date of Service Date of Service: 04/30/21 Progress Note: A&P Assessment and plan (1) Cholecystitis, acute with cholelithiasis: Status: Acute Assessment and Plan: Status post lap cholecystectomy Continues to do well Good p.o. intake Good pain control Okay to DC home today Follow-up with Dr. Hall Discussed with patient's brother and rn case management Fall Risk Details Current Medications: Current Medications Acetaminophen (Acetaminophen 325 Mg Tablet) 650 mg PO Q6H PRN PRN Reason: Pain, Mild (Pain Scale 1-3) Baclofen (Baclofen 10 Mg Tablet) 10 mg PO BID [facility] Last Admin: 04/30/21 09:31 Dose: 10 mg Documented by: Docusate Sodium (Docusate Sodium 100 Mg Capsule) 100 mg PO DAILY PRN PRN Reason: Constipation Escitalopram Oxalate (Escitalopram Oxalate 20 Mg Tablet) 20 mg PO DAILY [facility] Last Admin: 04/30/21 09:31 Dose: 20 mg Documented by: Escitalopram Oxalate (Escitalopram Oxalate 10 Mg Tablet) 10 mg PO DAILY [facility] Last Admin: 04/30/21 09:31 Dose: 10 mg Documented by: Dextrose/Lactated Ringer's (D5lr) 1,000 mls @ 125 mls/hr IVCONT .Q8H [facility] Last Admin: 04/30/21 06:25 Dose: 125 mls/hr Documented by: Melatonin (Melatonin 3 Mg Tablet) 3 mg PO BEDTIME PRN PRN Reason: Insomnia Morphine Sulfate (Morphine Sulfate 2 Mg/Ml Cartridge) 4 mg IVPUSH Q3H PRN; Protocol PRN Reason: Pain, Severe (Pain Scale 7-10) Omeprazole (Omeprazole 20 Mg Capsule.Dr) 20 mg PO DAILY@0630 [facility] Last Admin: 04/30/21 06:21 Dose: 20 mg Documented by: Ondansetron HCl (Ondansetron Hcl 4 Mg/2 Ml Vial) 4 mg IVPUSH Q8H PRN PRN Reason: Nausea and Vomiting Oxycodone HCl (Oxycodone Hcl Immed Release 5 Mg Tablet) 5 mg PO Q4H PRN PRN Reason: Pain, Moderate (Pain Scale 4-6 Pharmacy Consult (Consult Rx Perform Med Rec) 1 each MISCELLANE ONCE PRN PRN Reason: Consult order Pharmacy Consult (Consult Rx Vancomycin Dosing) 1 each MISCELLANE DAILY PRN PRN Reason: Consult order Primidone (Primidone 50 Mg Tablet) 100 mg PO DAILY [facility] Last Admin: 04/30/21 09:31 Dose: 100 mg Documented by: Primidone (Primidone 50 Mg Tablet) 50 mg PO BEDTIME [facility] Last Admin: 04/29/21 20:49 Dose: 50 mg Documented by: Propranolol HCl (Propranolol Hcl La 60 Mg Cap.Sa.24h) 120 mg PO DAILY [facility]; Protocol Last Admin: 04/30/21 09:30 Dose: 120 mg Documented by: Sodium Chloride (0.9 % Sodium Chloride Flush 3 Ml Syringe) 3 ml IVFLUSH QSHIFT [facility] Last Admin: 04/30/21 07:46 Dose: Not Given Documented by: Time Spent With Patient Time: Total time spent is greater than 50% in coordination of care (as documented) at patient's floor/unit and/or counseling patient: Time with patient: 15 - 24 minutes Quality Stroke Does the patient have a stroke diagnosis?: No VTE Prior VTE?: No VTE Risk Level:: Medical - moderate - high VTE Device Contraindication: N/A - Device Ordered VTE Drug Contraindication: N/A - Med Ordered
--- NOTE | 2021-04-30 10:42 | PM.DS ---
DS: Providers Provider Date of Service: 04/30/21 <Jana Kimball NP - Last Filed: 04/30/21 10:45> Date of admission: 04/26/21 09:18 <Jana Kimball NP - Last Filed: 04/30/21 10:45> Primary care physician: Jimmy Quinones DO <Jana Kimball NP - Last Filed: 04/30/21 10:45> Consults: 04/26/21 09:44 Consult to Psychiatry Routine Consulting Provider: [facility] Reason for consultation: elevated LFTs and on Depakote; med adjustment Has provider been notified: No 04/26/21 10:38 Consult to Gastroenterology Routine Consulting Provider: Yogi Nixon Reason for consultation: cholilithiasis; elevated lfts Has provider been notified: No 04/26/21 13:15 Consult to General Surgery Routine Consulting Provider: Cory Hall Reason for consultation: cholilithiasis ?cholecystitis Has provider been notified: No 04/27/21 03:31 Consult to Infectious Diseases Routine Consulting Provider: Snehal Mendoza Reason for consultation: bacteremia <Jana Kimball NP - Last Filed: 04/30/21 10:45> Attending physician on discharge: Stephan Banegas <Jana Kimball NP - Last Filed: 04/30/21 10:45> Discharging clinician: Jana Kimball <Jana Kimball NP - Last Filed: 04/30/21 10:45> DS: Diagnosis Discharge Diagnosis (1) Cholecystitis, acute with cholelithiasis: Status: Resolved <Jana Kimball NP - Last Filed: 04/30/21 10:45> DS: Summary Hospital Course Hospital Course: HP as per admitting provider This is a 51-year-old male with history of cerebral palsy hypertension, hyperlipidemia presents to the emergency department with abdominal pain.? Patient reports abdominal pain that began approximately week ago.? It is located primarily in the will of his abdomen.? The pain has been fairly constant but is worse with inspiration and eating food.? Last week he had associated nausea and dry heaving but this has resolved? He reports 2 weeks of constipation.? In the emergency department CT scan the abdomen showed possible cholecystitis, ultrasound was done and showed mild wall thickening and possible cholecystitis as well as common bile duct dilatation raising possibility of choledocholithiasis.? Surgery did not feel that this represented cholecystitis.? He was seen by GI who recommended MRCP.? His LFTs were noted to be elevated with AST 497, ALT 1004, alk phosphatase 405 and LDH 748. For this reason the decision was made to admit him for further management . Laparoscopic cholecystectomy. Had MRCP revealing CBD stones. Postop day 2. Doing well. Pain has been well controlled. Patient's appetite is good. patient is out of bed ambulating. Cleared by General surgery for discharge. He will follow-up with Dr. Hall as an outpatient. <Jana Kimball NP - Last Filed: 04/30/21 10:45> Time Spent with Patient Time attestation: Total time spent providing and/or coordinating discharge services: <Jana Kimball NP - Last Filed: 04/30/21 10:45> Discharge coordination time: Greater than 30 minutes <Jana Kimball NP - Last Filed: 04/30/21 10:45> Quality: Stroke Does the patient have a stroke diagnosis?: No <Jana Kimball NP - Last Filed: 04/30/21 10:45> Physical Exam Vital Signs: Vital Signs: Last Vital Signs Temp 96.8 F 04/29/21 07:37 Pulse 65 04/29/21 10:21 Resp 18 04/29/21 07:37 BP 136/63 04/29/21 07:37 Pulse Ox 96 04/29/21 10:21 Body Mass Index 33.4 <Jana Kimball NP - Last Filed: 04/30/21 10:45> Appearing in no acute distress head is normocephalic atraumatic eyes pupils are PERRLA sclera is anicteric mouth throat mucous membranes are intact and moist neck is supple no lymphadenopathy, no JVD noted lung sounds are clear to auscultation heart regular rate rhythm, clear S1, S2 positive bowel sounds, abdomen is soft, nontender neuro patient is alert x3, no focal deficits Small incisions from lap choly <Jana Kimball NP - Last Filed: 04/30/21 10:45> DS: Data Data Completed and Pending Pending studies at discharge: Pending at discharge 04/28/21 15:26 Surgical [PTH] Routine <Jana Kimball NP - Last Filed: 04/30/21 10:45> Labs on day of discharge: Laboratory Results - last 24 hr 04/30/21 05:35 Sodium 141 Potassium 4.0 Chloride 107 Carbon Dioxide 27 Anion Gap 11 L BUN 9 Creatinine 0.69 Estim Creat Clear Calc 143.4 Estimated GFR > 60 Random Glucose 124 H Calcium 8.8 Preliminary micro results at discharge 04/25/21 20:51 Blood Culture - Preliminary Blood - Venous No growth after 48 hours. <Jana Kimball NP - Last Filed: 04/30/21 10:45> Discharge Plan Discharge Anticipated Discharge Date/Time: 04/30/21 10:40 <Jana Kimball NP - Last Filed: 04/30/21 10:45> Patient Disposition: Home, Self-Care <Jana Kimball NP - Last Filed: 04/30/21 10:45> Discharge Diagnosis: Acute cholecystitis <Jana Kimball NP - Last Filed: 04/30/21 10:45> Acute cholecystitis <Stephan Banegas MD - Last Filed: 05/12/21 15:55> Referrals: Jimmy Quinones DO [Primary Care Provider] - 1 Week Cory aHll MD [Physician] - 2 Weeks <Jana Kimball NP - Last Filed: 04/30/21 10:45> Discharge Medications: New oxycodone 5 mg tablet 5 mg PO Q4H PRN (Reason: pain) Qty: 25 RF: 0 Continued primidone 50 mg tablet 100 mg PO QAM RF: 0 primidone 50 mg tablet 50 mg PO QPM RF: 0 atorvastatin 10 mg tablet 1 tab PO DAILY RF: 0 baclofen 10 mg tablet 1 tab PO BID RF: 0 divalproex [Depakote ER] 500 mg tablet extended release 24 hr 2 tab PO BEDTIME RF: 0 omeprazole 20 mg capsule,delayed release(DR/EC) 1 cap PO DAILY RF: 0 propranolol 120 mg capsule,extended release 24 hr 1 cap PO DAILY RF: 0 escitalopram oxalate [Lexapro] 20 mg tablet 1 tab PO DAILY RF: 0 aspirin 81 mg tablet,delayed release (DR/EC) 1 tab PO DAILY RF: 0 melatonin 3 mg tablet 1 tab PO BEDTIME PRN (Reason: Insomnia) RF: 0 escitalopram oxalate 10 mg tablet 1 tab PO DAILY RF: 0 <Jana Kimball NP - Last Filed: 04/30/21 10:45> Discharge Orders: Discharge Order (Routine); Ordered 04/30/21 Ordered By: Jana Kimball <Jana iKmball NP - Last Filed: 04/30/21 10:45> Diet: advance to usual diet <Jana Kimball NP - Last Filed: 04/30/21 10:45> advance to usual diet <Stephan Banegas MD - Last Filed: 05/12/21 15:55> Activity on Discharge: As tolerated <Jana Kimball NP - Last Filed: 04/30/21 10:45> As tolerated <Stephan Banegas MD - Last Filed: 05/12/21 15:55> Stand Alone Forms: Patient Portal Discharge page <Jana Kimball NP - Last Filed: 04/30/21 10:45> Activity Restrictions/Additional Instructions: If the incision area is tender, you may apply an ice pack for short intervals (No more than 20 minutes on, followed by at least 20 minutes off). Do not apply heat. Do not use creams, lotions, or topical antibiotics unless instructed to do so by your surgeon. These can cause infection or allergic reaction. OK to shower No lifting more than 20 lb No strenuous activities Call the office for follow-up in 2 weeks - with Dr. Hall Call Your Doctor If: -Your temperature exceeds 101.5? F -You experience excessive pain or swelling -You have an unexpected reaction to medication -You have excessive bleeding -You experience continued vomiting/nausea -Your incision begins to separate -Your incision shows signs of infection such as increased redness, swelling, excessive pain, drainage (light blood or clear fluid is normal) or heat <Jana Kimabll NP - Last Filed: 04/30/21 10:45> Care Plan Goals: control pain <Jana Kimball NP - Last Filed: 04/30/21 10:45> Health Concerns: history of mood d/o <Jana Kimball NP - Last Filed: 04/30/21 10:45> Plan of Treatment: oral pain meds continue same home meds <Jana Kimball NP - Last Filed: 04/30/21 10:45> Assessment: as above <Jana Kimball NP - Last Filed: 04/30/21 10:45> Discharge Date/Time: 04/30/21 14:15 <Jana Kimball NP - Last Filed: 04/30/21 10:45>
--- NOTE | 2021-04-30 11:21 | MHC.CM.PN ---
PT CLEARED TO DC HOME TODAY WITH NO NEW SERVICES. PT REPORTS HE HAS BEEN APPROVED FOR 15 HOURS OF CLIENT ACCOUNT SPECIALIST SERVICES PER WEEK BUT HAS BEEN UNABLE TO FIND ANYONE TO FILL THE HOURS. 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 PT REPORTS HIS BROTHER KRISTA WILL BE PICKING HIM UP AT DC AND HIS BROTHER WILL COME TO BRING PTS CAR HOME.
[2021-05-01 04:05] LABS: ~HepC Num1 0.07 S/CO (0.00-0.79); ~Hepatitis C Antibody Nonreactive (Nonreactive)
== END 2021-04-30 14:15 | disposition home or self-care (01) | DRG 419 ==
LOC: HO.ED 04-26 06:29 → HO.EDOVER 04-26 09:29 → HO.S3 04-26 10:18
PROVIDERS: Internal Medicine; Internal Medicine Gastroenterology; Physician Assistant; Surgery; Admitting Provider Physician Assistant Medical; Emergency Provider Student in an Organized Health Care Education/Training Program; PCP Internal Medicine; Visit Provider Nurse Practitioner Acute Care
PROC: 0FT44ZZ Resection of Gallbladder, Percutaneous Endoscopic Approach (ICD-10-PCS; CPT 47562; principal; 2021-04-28 13:30)
DX: K80.12 Calculus of gallbladder with acute and chronic cholecystitis without obstruction (principal); F39 Unspecified mood [affective] disorder; F31.9 Bipolar disorder, unspecified; K21.9 Gastro-esophageal reflux disease without esophagitis; G80.9 Cerebral palsy, unspecified; E78.5 Hyperlipidemia, unspecified; Z20.822 Contact with and (suspected) exposure to COVID-19; Z88.0 Allergy status to penicillin; Z79.82 Long term (current) use of aspirin; Z79.899 Other long term (current) drug therapy
CPT/HCPCS: 0241U; 36415; 71045; 71260; 74177; 74181; 76705; 80048; 80076; 80143; 80179; 82077; 82728; 83605; 83615; 83690; 83880; 84145; 84484; 85025; 85027; 85610; 85730; 86140; 86704; 86706; 86709; 86803; 87040; 87147; 87205; 87340; 88304; 93005; 96361; 96365; 96367; 99024; 99285; J0131; J0696; J1100; J1170; J2250; J2405; J3010; J3370; Q9967

== ENCOUNTER → 2021-05-05 10:52 | Outpatient (BNVA) | payer OTHER, SELFPAY | PROVIDERS: PCP Internal Medicine; Visit Provider Surgery | DX: Z48.815 Encounter for surgical aftercare following surgery on the digestive system (principal); Z87.19 Personal history of other diseases of the digestive system; Z90.49 Acquired absence of other specified parts of digestive tract | CPT/HCPCS: 99212 ==

== ENCOUNTER → 2021-07-24 12:28 | Day surgery (SDC) | payer OTHER, SELFPAY ==
[2021-07-24 13:06] VITALS: BP 136/78; PULSE 65; RESP 16; TEMP 36.6; O2SAT 99; BMI 32.5
== END ==
PROVIDERS: PCP Internal Medicine; Visit Provider Ophthalmology
PROC: (CPT 67840; principal; 2021-07-24 15:50)
DX: D23.111 Other benign neoplasm of skin of right upper eyelid, including canthus (principal); L82.1 Other seborrheic keratosis; H52.4 Presbyopia; H02.61 Xanthelasma of right upper eyelid; H52.203 Unspecified astigmatism, bilateral; G80.9 Cerebral palsy, unspecified; E78.00 Pure hypercholesterolemia, unspecified; Z88.0 Allergy status to penicillin; Z79.899 Other long term (current) drug therapy
CPT/HCPCS: 67840; 88305

== ENCOUNTER 2021-11-06 13:13 | Outpatient (REF) | payer OTHER, SELFPAY ==
[2021-11-06 13:33] LABS: MANUAL DIFF FLAG NO
[2021-11-06 13:55] LABS: Basophils Percent Auto 0.6 % (0-2); Eosinophils Percent Auto 0.6 % (0-4); Hematocrit 42.5 % (42.0-52.0); Hemoglobin 14.2 g/dl (14.0-18.0); Imm Gran Abs Auto 0.03 X10*3/uL (0.00-0.03); Imm Gran Pct Auto 0.4 % (0.0-0.4); Mean Corpuscular HGB Conc 33.4 g/dl (31.0-36.0); Mean Corpuscular Volume 86.7 fL (80.0-98.0); Mean Platelet Volume 9.8 fL (9.4-12.4); Monocytes Absolute Auto 0.5 X10*3/uL (0.1-1.2); Monocytes Percent Auto 6.7 % (2-11); Neutrophils Absolute Auto 4.2 x10*3/uL (2.0-8.3); Neutrophils Percent Auto 61.7 % (45-73); Platelet Count 319 X10*3/uL (160-400); Red Cell Distribution Width 13.2 % (11.0-16.0); White Blood Count 6.7 X10*3/uL (4.8-10.8)
[2021-11-06 14:20] LABS: Alanine Aminotransferase 23 U/L (0-40); Albumin Level 4.4 g/dL (3.5-5.0); Alkaline Phosphatase 69 U/L (39-117); Anion Gap 10 (12-20); Aspartate Amino Transferase 15 U/L (5-37); Bilirubin Direct 0.2 mg/dL (0.0-0.5); Bilirubin Total 0.6 mg/dL (0.0-1.0); Blood Urea Nitrogen 13 mg/dL (9-16); Calcium 9.2 mg/dL (8.4-10.2); Carbon Dioxide 27 mmol/L (22-29); Chloride 106 mmol/L (96-108); Estimated Glomerular Filt Rate > 60; Glucose Random 98 mg/dL (60-115); Potassium 4.7 mmol/L (3.3-5.1); Sodium 138 mmol/L (135-145)
[2021-11-06 14:37] LABS: Free T4 (Free Thyroxine) 0.99 ng/dL (0.71-1.85); Thyroid Stimulating Hormone 1.54 uIU/mL (0.32-4.0); Vitamin D 25-OH Total 28.8 ng/mL (>30)
== END 2021-11-06 13:14 | disposition home or self-care (01) ==
LOC: HO.LAB 13:13
PROVIDERS: Visit Provider Nurse Practitioner Psychiatric/Mental Health
DX: Z79.899 Other long term (current) drug therapy (principal)
CPT/HCPCS: 36415; 80053; 82248; 82306; 84439; 84443; 85025

== ENCOUNTER 2022-12-18 13:57 | Outpatient (REF) | payer OTHER, SELFPAY ==
--- NOTE | ~2022-12-18 | XR_ITS ---
EXAMINATION: XR SHOULDER , RIGHT CLINICAL INFORMATION: Contusion COMPARISON: None available at the time of this dictation. TECHNIQUE: AP external rotation, Grashey, scapular Y, and axillary views of the shoulder. FINDINGS: BONES: There is no fracture or dislocation, no osteolytic or osteoblastic lesion. JOINTS: Glenohumeral joint is properly positioned. There is mild degenerative osteoarthritis of the acromioclavicular joint. SOFT TISSUE AND INCLUDED LUNG: Soft tissue calcification adjacent to humeral head suggests possible calcific tendinosis. XR/XR shoulder RT min 2V IMPRESSION: * No fracture or dislocation. * Soft tissue calcification adjacent to humeral head suggests calcific tendinosis. MRI could be utilized for further assessment if clinically indicated. * Mild DJD AC joint.
== END 2022-12-18 13:58 | disposition home or self-care (01) ==
LOC: HO.HMGCX 13:57
PROVIDERS: PCP Internal Medicine; Visit Provider Internal Medicine
DX: S40.011A Contusion of right shoulder, initial encounter (principal)
CPT/HCPCS: 73030

== ENCOUNTER 2025-03-04 13:53 | Outpatient (AMB) | payer OTHER, SELFPAY ==
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
--- OUTSIDE RECORDS SUMMARY | 2025-03-04 13:57 | XMS_ITS | Clinical Summary ---
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 Name Role Phone Unavailable Primary Care Provider Unavailabl e Social History Tobacco Use Types Packs/Day Years Used Date Smoking Tobacco: Never Assessed Sex and Gender Information Value Date Recorded Sex Assigned at Male 06/11/2022 10:23 AM EDT Legal Sex Male 10:23 AM EDT Gender Identity Not on file Sexual Orientation Not on file Plan of Treatment Health Maintenance Due Date Last Done Comments CT Colonography 1969 Colonoscopy 1969 Colorectal Cancer Screening 1969 Depression Screening 1969 FIT DNA/Cologuard 1969 FIT 1969 FOBT 1969 Lipid Panel 1969 Sigmoidoscopy 1969 Disability Screening 1969 Alcohol/Substance Use Screening 1981 Tobacco Screening 1981 DTaP/Tdap/Td Vaccines (1 - Tdap) 01/08/1988 Hepatitis B Vaccines (1 of 3 - 19+ 3-dose series) 01/08/1988 Pneumococcal Vaccine: 50+ Ye ars (1 of 1 - PCV) 2019 Zoster Vaccines (1 of 2) 2019 COVID-19 Vaccine ( - 2023-2 5 season) 2024 Influenza Vaccine (#1) 2025 RSV Patients and Pa tients Aged 60 years or older (1 - 1-dose 75+ series) 01/08/2044 HIB Vaccines Aged Out No longer eligi ble based on patient's age to complete this topic HPV Vaccines Aged Out No longer eligi ble based on patient's age to complete this topic Hepatitis A Vaccines Aged Out No long er eligible based on patient's age to complete this topic IPV Vaccines Aged Out No longer eligi ble based on patient's age to complete this topic Meningococcal B Vaccine Aged Out No l onger eligible based on patient's age to complete this topic Meningococcal Vaccine Aged Out No rocael dina eligible based on patient's age to complete this topic RSV under 20 months Aged Out No longe r eligible based on patient's age to complete this topic Rotavirus Vaccines Aged Out No longer eligible based on patient's age to complete this topic
--- OUTSIDE RECORDS SUMMARY | 2025-03-04 13:57 | XMS_ITS | Clinical Summary ---
Author Organization [address] Address [address] [place] [address] Phone Care Team Providers Care Chief Security And Safety Officer Name Role Phone Jair Fisher MD Primary Care Provider Allergies Active Allergy Reactions Criticality Noted Date Comments Ondansetron 12/08/2020 Zofran Odt Possible reaction to Zofran Itchy, papular rash on chest Penicillin G Potassium 04/03/2007 Penicillin Other Reaction(s): Rash/Dermatitis Red rash and itching on chest Medications baclofen (LIORESAL) 10 mg tablet Take 1 Tab by mouth 2 times daily. 6 Active escitalopram (LEXAPRO) 10 mg tablet Take 10 mg by mouth daily. Active escitalopram (LEXAPRO) 20 mg tablet Take 20 mg by mouth daily. Active primidone (MYSOLINE) 250 mg tablet Take 250-500 mg by mouth 2 times daily. 2 tabs Q a.m. & 1 Tab Q p.m. Active propranolol LA (INDERAL LA) 120 mg 24 hr capsule Take 1 Capsule by mouth daily. 3 Active divalproex (Depakote) [address] tablet Take 1 tablet (500 mg total) by mouth at bedtime. Do not crush, chew, or split. Active famotidine (PEPCID) 20 mg tablet Take 1 tablet (20 mg total) by mouth 2 (two) times a day. 180 tablet 1 5 Active atorvastatin (LIPITOR) 10 mg tablet TAKE ONE TABLET BY MOUTH EVERY DAY 90 tablet 5 Active cholecalcifero l (VITAMIN D-3) 25 mcg (1,000 unit) tablet TAKE ONE TABLET BY MOUTH EVERY DAY 90 tablet 1 5 Active aspirin 81 mg EC tablet TAKE ONE TABLET BY MOUTH EVERY DAY 90 tablet 5 Active cholecalcifero l (VITAMIN D-3) 25 mcg (1,000 unit) tablet TAKE ONE TABLET BY MOUTH ONCE DAILY 90 tablet 1 5 02/11/20 25 Discontinued aspirin 81 mg EC tablet TAKE ONE TABLET BY MOUTH EVERY DAY 90 tablet 1 5 02/23/20 25 Discontinued Active Problems Problem Noted Date Diagnosed Date Prediabetes 10/05/2024 Muscle spasm 10/11/2022 Mixed hyperlipidemia 03/16/2014 Anxiety and depression 01/16/2008 Overview (07/13/2024): Followed [facility] psychiatrist Essential tremor 01/16/2008 Cerebral palsy ([facility] V24, [facility] V28) 2007 Encounters Date Type Department Care Team Description 12/04/2024 Telephone Adult Medicine [address] [phone] Jair Fisher MD referral problem from Last 3 Months Immunizations Name Administration Dates Next Due Influenza Quadravalent, MDCK , 0.5ml, preservative free (Flucelvax) 6mo and older 06/12/2022,05/26/2021 Influenza Quadravalent, MDCK , 0.5ml, with preservative (Flucelvax) 6mo and older 05/14/2017 Influenza trivalent, 0.5mL, preservative free (Fluarix; FluLaval; Fluzone) ages 6mo and older (Afluria) 3 years and older 04/17/2024,09/14/2013,05/06/2012 Influenza, Unspecified 06/03/2019,05/12/2014 Td Tetanus diptheria (Tdvax) 7yo and older 12/20 Tdap Tetanus diptheria acell ular pertussis (Boostrix; Adacel) 7yo and older 02/08/2009 Surgical History Surgery Date Site/Laterality Comments OTHER SURGICAL HISTORY PROCEDURE: HISTORY OTHER; COMMENT: bilat foot surgery done at [facility] COLONOSCOPY 03/26/2005 PROCEDURE: HISTORICAL COLONOSCOPY; COMMENT: incomplete to 25 cm. Follow-up barium enema suggestive only for diverticulosis. OTHER SURGICAL HISTORY 04/04/2005 PROCEDURE: RADIOLOGIC EXAM COLON SINGLE CONTRAST STUDY; COMMENT: Diverticulosis, otherwise normal. COLONOSCOPY 02/25/2018 PROCEDURE: HISTORICAL COLONOSCOPY; COMMENT: Diverticulosis, internal hemorrhoids, otherwise normal. Repeat 10 years Medical History Medical History Date Comments Essential and other specifie d forms of tremor 01/16/2008 DX:Essential and other speci fied forms of tremor Depression 01/16/2008 DX:Depression; C OMMENT: Followed [facility] psychiatrist Cerebral palsy ([facility] V24, [facility] V28) 12/29/2007 DX:Cerebral palsy ([facility]) History of tobacco abuse DX:Hist ory of tobacco abuse TBI (traumatic brain injury) ([facility] V24, [facility] V28) DX:TBI (traumatic brain inju ry) ([facility]); COMMENT: speaks slowly Osteopenia DX:Osteopenia History of colonoscopy 02/2018 DX:Histor y of colonoscopy; COMMENT: internal hemorrhoids; rpt 10 yrs; dr guzman Mixed hyperlipidemia DX:Mixed hy perlipidemia Family History Medical History Relation Name Comments Other: brain tumor Brother 1 Cataracts Father Cataracts Mother Pancreatic cancer Mother Blindness Neg Hx Glaucoma Neg Hx Macular degeneration Neg Hx Strabismus Neg Hx Relation Name Status Comments Brother 1 Alive diabetic Brother 2 Alive Father Alive dm htn heart pr oblem Mother (Age 71) htn dm chf Social History Tobacco Use Types Packs/Day Years Used Date Smoking Tobacco: Former Cigarettes Q uit: 07/12/2011 Smokeless Tobacco: Never Tobacco Cessation:Counseling Given: Not Answered Alcohol Use Standard Drinks/Week Comments No 0 (1 standard drink = 0.6 oz pur e alcohol) Sex and Gender Information Value Date Recorded Sex Assigned at Not on file Legal Sex Male 6:34 AM EST Gender Identity Not on file Sexual Orientation Not on file Obstetrics History Last Filed Vital Signs Vital Sign Reading Time Taken Comments Blood Pressure 132/65 10/06/2024 1:31 PM EST Pulse 59 10/06/2024 1:31 PM EST Temperature 36.6 C (97.8 F) 10/06/2024 1:31 PM EST Respiratory Rate 18 10/06/2024 1:31 PM EST Oxygen Saturation - - Inhaled Oxygen Concentration - - Weight 102 kg (224 lb) 10/06/2024 1:31 PM EST Height 177.8 cm (5' 10 ) 10/06/2024 1:31 PM EST Body Mass Index 32.14 10/06/2024 1:31 PM EST Plan of Treatment Upcoming Encounters Date Type Department Care Team (Late st Contact Info) Description 04/05/2025 11:00 AM EDT Office Visit Adult Medicine [address] [phone] Jair Fisher MD [address] [place] [id number] Health Maintenance Due Date Last Done Comments Hepatitis B Vaccines (1 of 3 - 19+ 3-dose series) 01/08/1988 Pneumococcal Vaccine: 50+ Years (1 of 1 - PCV) 2019 Zoster Vaccines (1 of 2) 2019 HIV Screening 07/21/2022 Medicare Annual Wellness Visit 07/21/2022 Social Influencers of Health Screening 07/21/2022 Depression Screening 08/12/2024 Influenza Vaccine (#1) 2025 , 07/18/2023, 06/12/2022, Additional history exists Colorectal Cancer Screening: Colonoscopy 02/26/2028 02/25/2018 DTaP,Tdap,and Td Vaccines (3 - Td or Tdap) 12/20/2028 12/20/2018, 02/08/2009 Cholesterol Screening (Lipid Panel) 07/07/2029 07/07/2024, 06/05/2024, 06/05/2024 COVID-19 Vaccine Completed 04/17/2024, 02/2023, 07/17/2021, Additional history exists Hepatitis C Screening Completed 06/05/2024 HIB Vaccines Aged Out No longer eligi [...] on patient's age to complete this topic MMR Vaccines Aged Out No longer eligi ble based on patient's age to complete this topic Meningococcal ACWY Vaccine Aged Out N o longer eligible based on patient's age to complete this topic Meningococcal B Vaccine Aged Out No l onger eligible based on patient's age to complete this topic RSV Immunization Patients Under 20 months Aged Out No longer eligible based on patient's age to complete this topic Varicella Vaccines Aged Out No longer eligible based on patient's age to complete this topic Procedures Procedure Name Priority Date/Time Associated Diagnosis Comments LIPID PANEL WITH REFLEX TO DIRECT LDL Routine 07/07/2024 11:57 AM EST Need for prophylactic chemotherapy HEPATITIS C SCREENING Routine 06/05/2024 COLONOSCOPY Routine 02/25/2018 from Last 3 Months or Most Recently Relevant to Health Maintenance Results * (ABNORMAL) Lipid panel with reflex to direct LDL (07/07/2024 11:57 AM EST) Cholesterol 136 0 - 200 mg/dL LAB CHEMISTRY METHOD 07/07/2024 2:40 PM [facility] Triglycerides 252(H) 0 - 150 mg/dL LAB CHEMISTRY METHOD 07/07/2024 2:40 PM [facility] HDL 37(L) >=40 mg/dL LAB CHEMISTRY METHOD 07/07/2024 2:40 PM [facility] LDL Calculated 49 0 - 100 mg/dL LAB CHEMISTRY METHOD 07/07/2024 2:40 PM [facility] VLDL Cholesterol Pantera 50.4 mg/dL LAB CHEMISTRY METHOD 07/07/2024 2:40 PM [facility] Non HDL Chol. (LDL+VLDL) 99 <145 mg/dL LAB CHEMISTRY METHOD 07/07/2024 2:40 PM [facility] Chol/HDL Ratio 3.7 0.0 - 4.4 LAB CHEMISTRY METHOD 07/07/2024 2:40 PM [facility] Blood Venous blood specimen / Unknown Venipuncture / Unknown 07/07/2024 11:57 AM EST 07/07/2024 11:57 AM EST Monica Dhillon MD LAB BLOOD ORDERABLES Fi nal Result [facility] [address] [place] [address], [place] [phone] * Hepatitis C Screening (06/05/2024) Hepatitis C Screening abstracted Historical Provider HEALTH MAINTENANCE Final Result * Colonoscopy (02/25/2018) Colonoscopy normal, abstracted Anatomical Region Laterality Modality Other Historical Provider HEALTH MAINTENANCE Final Result from Last 3 Months or Most Recently Relevant to Health Maintenance Insurance [facility] Member Subscriber Plan / Payer (Ef fective 2019-Present) Name:Dillon Luz Relation to Subscriber:Self Name:Dillon Luz Payer ID:[id number] Group ID:[id number] Type:Not on file Address: [address] [facility] [place] [id number] Care Teams Chief Security And Safety Officer Relationship Specialty Start Date End Date Jair Fisher MD [address] [place] [address] PCP - General Internal Medicine 02/26/22
== END 2025-03-04 14:21 | disposition home or self-care (01) ==
LOC: HO.HSM 13:54
PROVIDERS: PCP Internal Medicine; Visit Provider Registered Nurse
DX: S06.9XAS Unspecified intracranial injury with loss of consciousness status unknown, sequela (principal); R25.1 Tremor, unspecified; G81.14 Spastic hemiplegia affecting left nondominant side; G62.9 Polyneuropathy, unspecified
CPT/HCPCS: 99214

== ENCOUNTER → 2025-03-04 13:53 | Outpatient (BNVA) | payer OTHER, SELFPAY | PROVIDERS: PCP Internal Medicine; Visit Provider Registered Nurse | DX: R25.1 Tremor, unspecified (principal); G62.9 Polyneuropathy, unspecified; S06.9XAS Unspecified intracranial injury with loss of consciousness status unknown, sequela; V09.9XXS Pedestrian injured in unspecified transport accident, sequela; G81.14 Spastic hemiplegia affecting left nondominant side | CPT/HCPCS: 99212 ==